=== PATIENT | female | born 1950 | race Caucasian/White ===

== ENCOUNTER 2016-10-28 12:17 | Inpatient (IN) ==
--- NOTE | 2016-10-28 12:48 | Emergency Department Note ---
Disposition Clinical Impression: Sepsis, Diverticulitis of colon Disposition: Admitted As Inpatient Condition: Good General Adult HPI - General Chief complaint: ED Abdominal Pain Stated complaint: Abdominal Pain Time Seen by Provider: 10/28/16 12:45 Source: patient Limitations: no limitations - History of Present Illness Pain Scale: 7 - Related Data Home Medications Medication Instructions Recorded Confirmed Aspirin Enteric Coated [Aspirin EC] 81 mg PO DAILY 10/28/16 10/28/16 Atorvastatin [Lipitor] 40 mg PO HS 10/28/16 10/28/16 Carvedilol 12.5 mg PO BID 10/28/16 10/28/16 Fluticasone Propionate Nasal 50 mcg NS DAILY 10/28/16 10/28/16 [Flonase] Levothyroxine [Synthroid] 88 mcg PO 30 10/28/16 10/28/16 Losartan Potassium [Cozaar] 50 mg PO DAILY 10/28/16 10/28/16 Metformin [Glucophage] 500 mg PO DAILY PRN 10/28/16 10/28/16 NIFEdipine [Nifedipine ER] 30 mg PO DAILY 10/28/16 10/28/16 Omeprazole [PriLOSEC] 20 mg PO DAILY 10/28/16 10/28/16 Allergies Allergy/AdvReac Type Severity Reaction Status Date / Time No Known Allergies Allergy Verified 10/28/16 12:18 Past Medical History - Past Medical History Medical history: Reports: cancer, diabetes, myocardial infarction, other Psychiatric history: Reports: no psych history - Social History Smoking Status: Never smoker Smokeless Tobacco Status: No Alcohol use: Reports: none Drug use: Reports: none Physical Exam - General Limitations: no limitations General appearance: alert, in no apparent distress Course Vital Signs Temperature 98.0 F 10/28/16 12:19 Pulse Rate 109 10/28/16 12:19 Respiratory Rate 18 10/28/16 12:19 Blood Pressure 138/93 10/28/16 12:19 O2 Sat by Pulse Oximetry 96 10/28/16 12:19 Temperature 98.2 F 10/29/16 07:36 Pulse Rate 84 10/29/16 07:36 Respiratory Rate 16 10/29/16 07:36 Blood Pressure 126/66 10/29/16 07:36 O2 Sat by Pulse Oximetry 92 10/29/16 07:36 Oxygen Delivery Oxygen Delivery Room Air Medical Decision Making - Lab Data Result diagrams: 10/29/16 03:34 10/29/16 03:34 Lab Results 10/28/16 10/28/16 10/28/16 Range/Units 12:54 12:54 12:55 WBC 20.7 H (4.3-11.1) K/mcL RBC 5.03 H (3.82-4.97) M/mcL Hgb 15.0 (11.5-15.4) g/dL Hct 44.7 (35.3-44.9) % MCV 88.9 (83.0-100.0) fL MCH 29.8 (28.0-33.3) pg MCHC 33.6 (31.6-35.5) g/dL RDW 13.2 (11.5-14.5) % Plt Count 261 (140-400) K/mcL MPV 10.6 (9.4-12.4) fL Immature Gran % 0.9 (0-4) % Seg Neutrophils % 77.2 % Lymphocytes % 13.1 % Monocytes % 7.6 % Eosinophils % 1.0 % Basophils % 0.2 % Neutrophils # 16.0 H (1.6-8.9) K/mcL Lymphocytes # 2.7 (0.6-4.6) K/mcL Monocytes # 1.6 H (0.0-1.3) K/mcL Eosinophils # 0.2 (0.0-0.6) K/mcL Basophils # 0.1 (0.0-0.2) K/mcL PT (9.4-12.1) Seconds INR APTT (26.0-36.0) Seconds Sodium 137 (136-145) mEq/L Potassium 4.2 (3.5-4.5) mEq/L Chloride 100 (98-109) mEq/L Carbon Dioxide 25 (19-29) mEq/L BUN 21 H (7-20) mg/dL Creatinine 0.86 (0.57-1.11) mg/dL Est GFR ( Amer) > 60 (> 60) Est GFR (Non-Af Amer) > 60 (> 60) BUN/Creatinine Ratio 24 (6-26) Glucose 145 H (70-99) mg/dL Calculated Osmolality 290 (280-300) Lactic Acid (0.5-2.2) mmol/L Calcium 9.7 (8.6-10.8) mg/dL Total Bilirubin 1.6 H (0.2-1.2) mg/dL Direct Bilirubin 0.5 (0.0-0.5) mg/dL Indirect Bilirubin 1.1 (0.0-1.2) mg/dL AST 15 (5-34) Units/L ALT 18 (0-55) Units/L Alkaline Phosphatase 139 H (38-126) Units/L Serum Total Protein 7.6 (6.0-8.3) g/dL Albumin 3.5 (3.5-5.0) g/dL Globulin 4.1 H (2.4-3.5) g/dL Albumin/Globulin Ratio 0.9 L (1.1-2.2) Amylase 43 (25-125) Units/L Lipase 16 (8-78) Units/L Urine Color Dark Yellow (Yellow) Urine Clarity Cloudy A (Clear) Urine pH 6.0 (5.0-8.0) pH Units Ur Specific [place] 1.030 H (1.010-1.025) Urine Protein 30 H (Neg-Trace) mg/dL Urine Glucose (UA) Normal (Normal) mg/dL Urine Ketones Trace H (Negative) mg/dL Urine Blood Negative (Negative) Urine Nitrite Negative (Negative) Urine Bilirubin Small H (Negative) Urine Urobilinogen Normal (Normal) mg/dL Ur Leukocyte Esterase Small H (Negative) Urine Microscopic RBC 0-3 (0-3) per hpf Urine Microscopic WBC 5-15 H (0-3) per hpf Ur Squamous Epith Cells Many H (None-Few) per lpf Urine Bacteria Many H (None-Few) per hpf Hyaline Casts Test Not Performed Ur Culture Indicated? YES A (NO) 10/28/16 10/28/16 Range/Units 15:50 15:50 WBC (4.3-11.1) K/mcL RBC (3.82-4.97) M/mcL Hgb (11.5-15.4) g/dL Hct (35.3-44.9) % MCV (83.0-100.0) fL MCH (28.0-33.3) pg MCHC (31.6-35.5) g/dL RDW (11.5-14.5) % Plt Count (140-400) K/mcL MPV (9.4-12.4) fL Immature Gran % (0-4) % Seg Neutrophils % % Lymphocytes % % Monocytes % % Eosinophils % % Basophils % % Neutrophils # (1.6-8.9) K/mcL Lymphocytes # (0.6-4.6) K/mcL Monocytes # (0.0-1.3) K/mcL Eosinophils # (0.0-0.6) K/mcL Basophils # (0.0-0.2) K/mcL PT 12.9 H (9.4-12.1) Seconds INR 1.2 APTT 28.0 (26.0-36.0) Seconds Sodium (136-145) mEq/L Potassium (3.5-4.5) mEq/L Chloride (98-109) mEq/L Carbon Dioxide (19-29) mEq/L BUN (7-20) mg/dL Creatinine (0.57-1.11) mg/dL Est GFR ( Amer) (> 60) Est GFR (Non-Af Amer) (> 60) BUN/Creatinine Ratio (6-26) Glucose (70-99) mg/dL Calculated Osmolality (280-300) Lactic Acid 1.0 (0.5-2.2) mmol/L Calcium (8.6-10.8) mg/dL Total Bilirubin (0.2-1.2) mg/dL Direct Bilirubin (0.0-0.5) mg/dL Indirect Bilirubin (0.0-1.2) mg/dL AST (5-34) Units/L ALT (0-55) Units/L Alkaline Phosphatase (38-126) Units/L Serum Total Protein (6.0-8.3) g/dL Albumin (3.5-5.0) g/dL Globulin (2.4-3.5) g/dL Albumin/Globulin Ratio (1.1-2.2) Amylase (25-125) Units/L Lipase (8-78) Units/L Urine Color (Yellow) Urine Clarity (Clear) Urine pH (5.0-8.0) pH Units Ur Specific [place] (1.010-1.025) Urine Protein (Neg-Trace) mg/dL Urine Glucose (UA) (Normal) mg/dL Urine Ketones (Negative) mg/dL Urine Blood (Negative) Urine Nitrite (Negative) Urine Bilirubin (Negative) Urine Urobilinogen (Normal) mg/dL Ur Leukocyte Esterase (Negative) Urine Microscopic RBC (0-3) per hpf Urine Microscopic WBC (0-3) per hpf Ur Squamous Epith Cells (None-Few) per lpf Urine Bacteria (None-Few) per hpf Hyaline Casts Ur Culture Indicated? (NO) Attestation Statement - Attestation Attestation: I examined this patient and my medical decision-making was reviewed with the ELEVATOR TECHNICIAN/PA/Advanced Practice Nurse/Resident Physician. I agree with the documented findings, disposition and treatment plan as described except to the extent set forth below. [id number] time provided Patient complains of a three-day history of subxiphoid discomfort. She has a remote history of cholecystectomy. Appears in no acute distress on exam. Localizes pain to her epigastric region
[2016-10-28 13:00] LABS: Basophils # 0.1 K/mcL (0.0-0.2); Basophils % 0.2 %; Eosinophils # 0.2 K/mcL (0.0-0.6); Hematocrit 44.7 % (35.3-44.9); Immature Granulocytes % 0.9 % (0-4); Lymphocytes # 2.7 K/mcL (0.6-4.6); Lymphocytes % 13.1 %; Mean Corpuscular HGB Conc 33.6 g/dL (31.6-35.5); Mean Corpuscular Hemoglobin 29.8 pg (28.0-33.3); Mean Corpuscular Volume 88.9 fL (83.0-100.0); Mean Platelet Volume 10.6 fL (9.4-12.4); Monocytes # 1.6 K/mcL (0.0-1.3); Monocytes % 7.6 %; Platelet Count 261 K/mcL (140-400); Red Blood Count 5.03 M/mcL (3.82-4.97); Red Cell Distribution Width 13.2 % (11.5-14.5); Segmented Neutrophils % 77.2 %
[2016-10-28 13:05] LABS: Bilirubin,Urine Small (Negative); Blood,Urine Negative (Negative); Clarity,Urine Cloudy (Clear); Color,Urine Dark Yellow (Yellow); Glucose,Urine (UA) Normal (Normal); Ketones,Urine Trace mg/dL (Negative); Leukocyte Esterase,Urine Small (Negative); Nitrite,Urine Negative (Negative); Protein,Urine 30 mg/dL (Neg-Trace); Urobilinogen,Urine Normal (Normal)
[2016-10-28 13:06] LABS: Bacteria,Urine Many per hpf (None-Few); RBC,Urine 0-3 per hpf (0-3); Squamous Epithelial Cell,Urine Many per lpf (None-Few)
--- NOTE | 2016-10-28 13:09 | Emergency Department Note ---
Disposition Clinical Impression: Diverticulitis of colon Sepsis Qualifiers: Sepsis type: sepsis due to unspecified organism Qualified Code(s): A41.9 - Sepsis, unspecified organism Disposition: Admitted As Inpatient Condition: Good Referrals: NO,PCP [Non-Partnered Physician] - Forms: Work/School Release, ED Satisfaction Letter Time of Disposition: 15:11 Abdominal Pain HPI - General Chief Complaint: ED Abdominal Pain Stated Complaint: Abdominal Pain Time Seen by Provider: 10/28/16 12:45 Source: patient Mode of arrival: ambulatory Limitations: no limitations Nursing Notes Reviewed: Yes Vital Signs Reviewed: Yes - History of Present Illness HPI Narrative: 66-year-old female history of GERD presents to the ED with epigastric pain. Intermittently over the past 2 nights. Described as a sharp pain with some radiation to the right upper quadrant. Denies any association with foods. Denies any nausea. Does report 2 episodes of emesis yesterday one while sitting on the couch and the other laying supine in the bed before sleeping. Denies any recent illness, fever, cough, chest pain, shortness of breath, diarrhea, recent travel. Denies any bloody stool or black tarry stools. Denies any urinary symptoms. History of a hysterectomy and cholecystectomy. Has been eating a normal diet without any difficulty. She has not taken anything for pain. Pain Scale: 7 - Related Data Allergies Allergy/AdvReac Type Severity Reaction Status Date / Time No Known Allergies Allergy Verified 10/28/16 12:18 All systems ED: reviewed and negative except as stated. Constitutional: Denies: fever, chills ENT ED: Denies: congestion Cardiovascular: Denies: chest pain Respiratory: Denies: cough, dyspnea Gastrointestinal: Reports: abdominal pain, vomiting. Denies: nausea, diarrhea, melena, hematochezia Genitourinary: Denies: urgency, dysuria Musculoskeletal: Denies: back pain, neck pain Neurological: Denies: headache Abdominal Pain PMH - Past Medical History Medical history: Reports: cancer, diabetes, myocardial infarction, other Female Surgical History: Reports: cholecystectomy, hysterectomy, thyroidectomy Psychiatric history: Reports: no psych history - Social History Smoking status: Never smoker Alcohol use: Reports: none Drug use: Reports: none Physical Exam - General Limitations: no limitations General appearance: alert, in no apparent distress - Head Head exam: atraumatic, normocephalic, normal inspection - Eye Eye exam: Present: normal appearance, PERRL, EOMI - ENT ENT exam: normal exam, normal oropharynx, mucous membranes moist - Neck Neck exam: Present: normal inspection, full ROM, trachea midline - Chest Chest inspection: Present: normal inspection, symmetric chest wall rise. Absent : tenderness - Respiratory Respiratory exam: Present: normal lung sounds bilaterally. Absent: respiratory distress, wheezes - Cardiovascular Cardiovascular exam: Present: regular rate, normal rhythm, normal heart sounds. Absent: systolic murmur, diastolic murmur - Abdominal Exam Abdominal exam: Present: soft (Obese), tenderness, normal bowel sounds. Absent : Non-Tender, distention, guarding, rebound, rigidity, Ventura's sign, Rovsing's sign, tenderness at McBurney's Point Abdominal tenderness: Present: RUQ, suprapubic - Extremities Exam Extremities exam: Present: normal inspection, full ROM, normal capillary refill. Absent: tenderness, pedal edema, calf tenderness - Back Exam Back exam: Present: normal inspection, full ROM. Absent: tenderness, CVA tenderness (R), CVA tenderness (L) - Neurological Exam Neurological exam: Present: alert, oriented X3 - Psychiatric Psychiatric exam: Present: normal affect, normal mood - Skin Skin exam: Present: warm, dry, intact, normal color. Absent: rash Course Course Narrative: 66-year-old female presents with abdominal pain was sleeping in the epigastric and right upper quadrant. History of cholecystectomy and hysterectomy. Ongoing for the past few days with 2 episodes of vomiting. Denies any chest pain or radiation of the pain into the shoulders or draw. Denies any diaphoresis shortness of breath nausea or vomiting with the pain occurs. She appears in no acute distress. She is afebrile. Initial HR was 102 now 89. She is not septic appearing. Lungs are clear auscultation bilaterally. Heart's regular rate and rhythm. Abdomen is soft nondistended nonrigid. Tenderness along the epigastric and right upper quadrant. Bowel sounds are normal. No evidence of rash. The CVA tenderness. Will check basic labs and urine. EKG is normal sinus rhythm without signs of acute ischemic changes to suggest a cardiac etiology. Toradol and Zofran for symptoms. Patient is in agreement with this plan. - Reevaluation(s) Reevaluation #1: She has a leukocytosis of 20. Alk phosphatase is a little elevated. Amylase and lipase is normal. Labs are otherwise unremarkable. We will get a CT of her abdomen and pelvis without contrast. Time: 13:24 Reevaluation #2: Pain is better controlled with toradol. CT of the abdomen and pelvis reveals acute moderate wall thickening of the transverse colon with adjacent fat stranding to suggest transverse colonic diverticulitis. No evidence of perforation, free air or abscess. Malignancy cannot be excluded. Sepsis identified, will ordered lactate, coags, and blood cultures. Will start her on Cipro and Flagyl for antibiotics. She has not been hypotensive during stay and does not require a 30 mL/kg fluid resuscitation at this time. There is also bilateral renal cysts and spleen lesion consistent with cyst or hemangioma. Will admit patient for pain control and bowel rest. Patient is in agreement with plan. Time: 15:09 - Consultations Consultation #1: Spoke with on-call hospitalist falguni Silva to admit for transverse colonic diverticulitis. No further orders at this time Time: 15:11 Vital Signs Temperature 98.0 F 10/28/16 12:19 Pulse Rate 109 10/28/16 12:19 Respiratory Rate 18 10/28/16 12:19 Blood Pressure 138/93 10/28/16 12:19 O2 Sat by Pulse Oximetry 96 10/28/16 12:19 Temperature 98.0 F 10/28/16 12:19 Pulse Rate 89 10/28/16 13:47 Respiratory Rate 16 10/28/16 13:47 Blood Pressure 107/79 10/28/16 13:47 O2 Sat by Pulse Oximetry 94 10/28/16 13:47 Oxygen Delivery Oxygen Delivery Room Air Abdominal Pain - Medical Records Medical records reviewed: Yes I reviewed the patient's medical records. - Lab Data Lab results reviewed: Yes I reviewed the patient's lab results. Result diagrams: 10/28/16 12:54 10/28/16 12:54 Lab Results 10/28/16 10/28/16 10/28/16 Range/Units 12:54 12:54 12:55 WBC 20.7 H (4.3-11.1) K/mcL RBC 5.03 H (3.82-4.97) M/mcL Hgb 15.0 (11.5-15.4) g/dL Hct 44.7 (35.3-44.9) % MCV 88.9 (83.0-100.0) fL MCH 29.8 (28.0-33.3) pg MCHC 33.6 (31.6-35.5) g/dL RDW 13.2 (11.5-14.5) % Plt Count 261 (140-400) K/mcL MPV 10.6 (9.4-12.4) fL Immature Gran % 0.9 (0-4) % Seg Neutrophils % 77.2 % Lymphocytes % 13.1 % Monocytes % 7.6 % Eosinophils % 1.0 % Basophils % 0.2 % Neutrophils # 16.0 H (1.6-8.9) K/mcL Lymphocytes # 2.7 (0.6-4.6) K/mcL Monocytes # 1.6 H (0.0-1.3) K/mcL Eosinophils # 0.2 (0.0-0.6) K/mcL Basophils # 0.1 (0.0-0.2) K/mcL Sodium 137 (136-145) mEq/L Potassium 4.2 (3.5-4.5) mEq/L Chloride 100 (98-109) mEq/L Carbon Dioxide 25 (19-29) mEq/L BUN 21 H (7-20) mg/dL Creatinine 0.86 (0.57-1.11) mg/dL Est GFR ( Amer) > 60 (> 60) Est GFR (Non-Af Amer) > 60 (> 60) BUN/Creatinine Ratio 24 (6-26) Glucose 145 H (70-99) mg/dL Calculated Osmolality 290 (280-300) Calcium 9.7 (8.6-10.8) mg/dL Total Bilirubin 1.6 H (0.2-1.2) mg/dL Direct Bilirubin 0.5 (0.0-0.5) mg/dL Indirect Bilirubin 1.1 (0.0-1.2) mg/dL AST 15 (5-34) Units/L ALT 18 (0-55) Units/L Alkaline Phosphatase 139 H (38-126) Units/L Serum Total Protein 7.6 (6.0-8.3) g/dL Albumin 3.5 (3.5-5.0) g/dL Globulin 4.1 H (2.4-3.5) g/dL Albumin/Globulin Ratio 0.9 L (1.1-2.2) Amylase 43 (25-125) Units/L Lipase 16 (8-78) Units/L Urine Color Dark Yellow (Yellow) Urine Clarity Cloudy A (Clear) Urine pH 6.0 (5.0-8.0) pH Units Ur Specific [place] 1.030 H (1.010-1.025) Urine Protein 30 H (Neg-Trace) mg/dL Urine Glucose (UA) Normal (Normal) mg/dL Urine Ketones Trace H (Negative) mg/dL Urine Blood Negative (Negative) Urine Nitrite Negative (Negative) Urine Bilirubin Small H (Negative) Urine Urobilinogen Normal (Normal) mg/dL Ur Leukocyte Esterase Small H (Negative) Urine Microscopic RBC 0-3 (0-3) per hpf Urine Microscopic WBC 5-15 H (0-3) per hpf Ur Squamous Epith Cells Many H (None-Few) per lpf Urine Bacteria Many H (None-Few) per hpf Hyaline Casts Test Not Performed Ur Culture Indicated? YES A (NO) - Radiology Data Radiology results reviewed: Yes I reviewed the patient's radiology results. Abdomen/Pelvis CT 10/28/16 13:18 IMPRESSION: 1. Acute moderate wall thickening of the transverse colon with adjacent inflammatory fat stranding and a small anterior transverse colonic diverticulum noted. These findings are most consistent with acute transverse colonic diverticulitis, without evidence of perforation, free air, or abscess. However, a transverse colonic malignancy is also a diagnostic consideration. Suggest appropriate clinical treatment, and imaging follow-up, to include either repeat CT abdomen/pelvis, barium enema, or colonoscopy, to ensure resolution of the transverse colonic findings, and to exclude underlying transverse colonic mass lesion. 2. Bilateral renal cortical and peripelvic cysts. There is a 6 mm high attenuation nodular lesion off the lateral aspect of the mid right kidney, most likely a hyperdense cyst. However, consider a follow-up pre and postcontrast renal mass protocol CT study to more completely characterize this abnormality. 3. 9 mm low-attenuation lesion within the spleen, most likely either a cyst or hemangioma. 4. Patient is status post cholecystectomy and hysterectomy. D/ / 10/28/2016 14:52:21 Arnoldo Baldwin MD / eberry Interpreting Provider: Arnoldo Baldwin MD - EKG Data EKG attestation: Yes I reviewed and interpreted this EKG. EKG results narrative: EKG performed 1300 sinus tachycardia 102 bpm, good R-R wave progression, normal axis, there are no ST elevations or depressions, no T-wave inversions. Intervals are within normal limits OK interval 182 QRS 81 QT QTC 311 369. Compared to old EKG performed 03/29/2011 shows consistent findings with poor R wave progression. No acute ischemic changes.
[2016-10-28 13:15] LABS: Alanine Aminotransferase 18 Units/L (0-55); Albumin 3.5 g/dL (3.5-5.0); Albumin/Globulin Ratio 0.9 (1.1-2.2); Alkaline Phosphatase 139 Units/L (38-126); Amylase 43 Units/L (25-125); Aspartate Amino Transferase 15 Units/L (5-34); BUN/Creatinine Ratio 24 (6-26); Bilirubin,Direct 0.5 mg/dL (0.0-0.5); Bilirubin,Indirect 1.1 mg/dL (0.0-1.2); Bilirubin,Total 1.6 mg/dL (0.2-1.2); Blood Urea Nitrogen 21 mg/dL (7-20); Calcium 9.7 mg/dL (8.6-10.8); Carbon Dioxide 25 mEq/L (19-29); Chloride 100 mEq/L (98-109); Globulin 4.1 g/dL (2.4-3.5); Glucose 145 mg/dL (70-99); Lipase 16 Units/L (8-78); Osmolality,Calculated 290 (280-300); Potassium 4.2 mEq/L (3.5-4.5); Sodium 137 mEq/L (136-145); Total Protein 7.6 g/dL (6.0-8.3); eGFR For African Americans > 60 (> 60); eGFR For Non-African Americans > 60 (> 60)
[2016-10-28] MEDS ORDERED: Ketorolac 30 MG/ML VIAL IM ONE (13:27)
[2016-10-28] MEDS ORDERED: Ondansetron ODT 4 MG TAB.RAPDIS SL ONE (13:27)
[2016-10-28] MEDS ORDERED: MetroNIDAZOLE 500 MG/100 ML 500 MG/100 ML BAG IVPB ONE (15:02)
[2016-10-28] MEDS ORDERED: 0.9 % Sodium Chloride 1,000 ML IVC STA (15:15)
[2016-10-28 16:05] LABS: INR 1.2; Prothrombin Time 12.9 Seconds (9.4-12.1)
[2016-10-28] MEDS ORDERED: Ondansetron ODT 4 MG TAB.RAPDIS SL PRN (18:13)
[2016-10-28] MEDS ORDERED: *HR* HYDROcodone/Acet 5/325 mg TABLET PO PRN (18:13)
[2016-10-28] MEDS ORDERED: *HR* Morphine 2 MG/ML SYRINGE IVP PRN (18:13)
[2016-10-28] MEDS ORDERED: Acetaminophen 325 MG TABLET PO PRN (18:13)
[2016-10-28] MEDS ORDERED: Naloxone 0.4 MG/ML INJ IVP PRN (18:13)
[2016-10-28] MEDS ORDERED: D5% in Water 1,000 ML IVC PRN (18:46)
[2016-10-28] MEDS ORDERED: Dextrose Gel 15 GM PO PRN ×2 (18:46)
[2016-10-28] MEDS ORDERED: *HR* Dextrose 50 % in Water (Syg) 50 ML SYRINGE IVP PRN (18:46)
--- NOTE | 2016-10-28 18:55 | Event Note ---
Date of Encounter: 10/28/16 Time of Encounter: 18:54 I examined this patient and my medical decision-making was reviewed with the DYE TUB OPERATOR/PA/Advanced Practice Nurse/Resident Physician. I agree with the documented findings, disposition and treatment plan as described except to the extent set forth below. She has a PMH of HTN, Hypothyroidism and DM, Medullary thyroid CA. She presented with epigastric discomfort which has been intermittent for the past 2 days associated with 2 episodes of vomiting, she denies hematemesis, change in bowel habits, hematochezia, she denies fever or chills. ROS is otherwise unremarkable. Physical exam: VSS, she was tachycardic on admission but has HR now normal after IVF, she is comfortable sitting up in bed. Abdomen exam is significant for epigastric tenderness, no rebound, no guarding, no palpable masses, bowel sounds are present in all quadrants. Labs and Imaging reviewed: Abd CT with acute transverse diverticulitis, uncomplicated without perforation or abscess, suspicious malignancy in transverse colon, bilateral renal cysts and spleen lesion consistent with cyst or hemangioma. She has leukocytosis with left shift, chem is unremarkable, coagulation panel is normal, and LFT unremarkable, and UA is contaminated Assessment/Plan: Sepsis secondary to Acute Uncomplicated diverticulitis, agree with blood cultures, urine culture, IVF, clear liquid diet, Cipro and flagyl, patient will need Colonoscopy as outpatient for follow up. She also has multiple abnormal CT findings which are not acute for now. Resume home meds. Rest of details as in NIL[facility]a documentation
--- NOTE | 2016-10-28 19:19 | Internal Med History&Physical ---
<PurnimaBrannon Puri - Last Filed: 10/29/16 07:32> Date of Encounter: 10/29/16 Time of Encounter: 18:00 Assessment and Plan (1) Sepsis Current visit: Yes Status: Acute Assess: Patient admitted with chief complain of epigastric pain and confirmed diverticulitis via CT of abdomen and pelvis. Sepsis protocol to be followed due to HR = 109, WBCs or 20.7, and unspecified organism. Plan: Lactate level being monitored Blood cultures ordered IV Cipro ordered IV Flagyl ordered Crystalloid fluids ordered Qualifiers: Sepsis type: sepsis due to unspecified organism Qualified Code(s): A41.9 - Sepsis, unspecified organism (2) Diverticulitis of colon Current visit: Yes Status: Acute Assess: Patient presents with acute diverticulitis which was confirmed by CT of abdomen and pelvis on 10/28/16. Sepsis protocol ordered due to patients HR of 109, WBCs of 20.7, and unspecified organism. Patient also presents with epigastric pain that is centralized and causes guarding due to tenderness when palpated. Plan: Liquid diet ordered Progress to solid diet tomorrow 10/29/16 as tolerated Acetaminophen ordered PRN for pain 1-3 Hydrocodone ordered PRN for pain 4-6 Morphine ordered PRN for pain 7-10 Monitor for pain Up with assist due to pain (3) Epigastric abdominal pain Current visit: Yes Status: Acute Assess: Patient also presents with epigastric pain that is centralized and causes guarding due to tenderness when palpated. Patient presents with acute diverticulitis which was confirmed by CT of abdomen and pelvis on 10/28/16. Sepsis protocol ordered due to patients HR of 109, WBCs of 20.7, and unspecified organism. Plan: Liquid diet ordered Progress to solid diet tomorrow 10/29/16 as tolerated Acetaminophen ordered PRN for pain 1-3 Hydrocodone ordered PRN for pain 4-6 Morphine ordered PRN for pain 7-10 Monitor for pain Up with assist due to pain (4) DVT prophylaxis Current visit: Yes Status: Acute DVT prophylaxis ordered due to patient being inpatient status, inactivity due to pain, and history of [place]. Internal Medicine - H&P: HPI Chief complaint: Epigastric pain Admitted From: Emergency Dept Plans for Post Hospital Care: Home History of present illness: Ms. Pan is a 66 year old female presents from the ED with a history of GERD and a chief complaint of centralized epigastric pain. Patient reports nausea and vomiting began last night, 10/27/16, with no relief from epigastric pain. Recent states pain has some radiation qualities to the upper right quadrant. Denies any association with foods. Mrs. Pan reports 2 episodes of emesis but denies presence of hematemesis. Patient denies any recent illness, fever, cough, chest pain, SOB, diarrhea, or recent travel out of country. Patient denies hematochezia or tarry stools. Patient denies any urinary symptoms and reports only occasional urinary incontinence. Patient states she takes omeprazole daily for GERD. Patient also reports her bowels move every day, and BMs are brown and formed. Denies diarrhea. Upon examination patient exhibits tenderness and guarding in epigastric area when palpated. CT of abdomen and pelvis dated 10/28/16 reveals acute motor or wall thickening of the transverse colon with adjacent fat stranding to suggest transverse colonic diverticulitis. No evidence of perforation, free air, or abscess. Sepsis protocol to be followed due to unspecified organism and identified diverticulitis with qualifying SIRS criteria: HR = 109, WBCs of 20.7. Patient admitted as inpatient status. Past Med Surg Social Fam HX - Past Medical History Medical history: cancer, diabetes, GERD, hypertension, myocardial infarction, other Psychiatric history: no psych history - Past Surgical History Surgical History: cholecystectomy, hysterectomy, thyroidectomy - Social History Smoking Status: Never smoker Smokeless Tobacco Status: No Alcohol use: none Drug use: none Occupational status: retired Current living situation: Home Activity Level: Independent ambulation Recent Out of Country Travel Within the Last 8 Weeks: No Exposure or Possible Exposure to Illness During Travel: No - Family History Father Living Status: Cause of : heart attack Hx Family Cardiac Disorders: Yes Internal Medicine - H&P: Meds Aspirin Enteric Coated [Aspirin EC] 81 mg PO DAILY 10/28/16 [History] Atorvastatin [Lipitor] 40 mg PO HS 10/28/16 [History] Carvedilol 12.5 mg PO BID 10/28/16 [History] Fluticasone Propionate Nasal [Flonase] 50 mcg NS DAILY 10/28/16 [History] Levothyroxine [Synthroid] 88 mcg PO 0630 10/28/16 [History] Losartan Potassium [Cozaar] 50 mg PO DAILY 10/28/16 [History] Metformin [Glucophage] 500 mg PO DAILY PRN 10/28/16 [History] NIFEdipine [Nifedipine ER] 30 mg PO DAILY 10/28/16 [History] Omeprazole [PriLOSEC] 20 mg PO DAILY 10/28/16 [History] Allergies No Known Allergies Allergy (Verified 10/28/16 12:18) All Systems PM: A 10-system review of systems was performed and is negative for pertinent findings except as documented above in the HPI. - Constitutional Constitutional: no chills, no fever(s), no night sweats - EENT Eyes: no change in vision, no discharge, no pain, no photophobia Ears: no ear discharge, no ear pain, no tinnitus Nose, mouth and throat: no dysphagia, no nasal discharge, no neck pain, no sore throat - Breasts Breasts: as per HPI Additional comments: Patient reports no changes in her breasts or tissues bilaterally. - Cardiovascular Cardiovascular ROS IM: no chest pain, no diaphoresis, no dyspnea, no lightheadedness, no palpitations, no syncope - Respiratory Respiratory: no cough, no dyspnea, no wheezing, no excessive phlegm production - Gastrointestinal Gastrointestinal: abdominal pain, nausea, vomiting Additional comments: Patient reports episodes of nausea and vomiting beginning in the evening of 03/07. Patient also reports pain in the central epigastric area of her abdomen. States this is not chronic. - Genitourinary Genitourinary: urinary incontinence, no change in urinary stream, no dysuria, no flank pain, no hematuria Additional comments: Patient reports occasional urinary incontinence. Patient denies any burning or urgency with urination. Patient denies history of UTIs. Menstruation: as per HPI, post hysterectomy Additional comments: Patient reports she is status post hysterectomy and does not take HRT. - Musculoskeletal Musculoskeletal ROS IM: no numbness, no tingling - Integumentary Integumentary IM: no rash, no unusual bruising - Neurological Neurological ROS: no confusion, no convulsions, no focal weakness, no numbness, no tingling, no tremor(s) - Psychiatric Psychiatric: as per HPI Additional comments: Patient denies any history of psychiatric illness, anxiety, or depression. - Endocrine Endocrine IM: as per HPI Additional comments: Patient denies any history of cold and heat intolerance, chronic fatigue, or chronic weakness. - Hematologic/Lymphatic Hematologic/Lymphatic: no easy bruising - Allergic/Immunologic Allergic/Immunologic: as per HPI, seasonal rhinorrhea Additional comments: Patient reports she is symptomatic for seasonal allergies but has not been diagnosed. - Constitutional Vitals: Temp Pulse Resp BP Pulse Ox 97.9 F 75 18 99/65 94 10/28/16 18:38 10/28/16 18:38 10/28/16 18:38 10/28/16 18:38 10/28/16 18:38 General appearance: Present: cooperative, A&O X 3, pleasant, obese, answers questions appropriately - Head Head exam: Present: atraumatic, normocephalic - Eye Eye exam: Present: normal appearance, PERRL, conjuntiva pink, sclera anicteric Pupils: Present: PERRL - ENT ENT exam: Present: normal exam Additional comments: Patient reports reduced hearing in left ear. Upon testing however, patient was able to identify words spoken with right ear occluded. - Neck Neck exam general surgery: Present: normal inspection, supple, trachea midline - Respiratory Respiratory exam: Present: CTAB. Absent: accessory muscle use, rales, rhonchi, wheezes Additional comments: Patient's lungs clear bilaterally upon auscultation in all lobes. - Cardiovascular Additional comments: Slight murmur noted on heart exam. Patient confirms this. - GI/Abdominal GI/Abdominal exam: Present: guarding, normal bowel sounds, soft, no peritoneal signs. Absent: distended, tenderness Additional comments: Patient presents with centralized upper epigastric pain. Abdomen is tender, and patient exhibits guarding upon palpation. - Rectal Rectal exam: Present: deferred - Additional comments: Exam deferred. - Extremities Exam Extremities exam: Present: normal capillary refill, normal inspection, warm, radial pulses palpable and symetrical. Absent: calf tenderness, cyanotic, pedal edema - Back Exam Back exam: Present: normal inspection - Neurological Exam Neurological exam: Present: alert, CN II-XII intact, oriented X3, reflexes normal, no focal deficits, strengths equal and symetr throughout. Absent: pronater drift, facial droop, speech deficit - Psychiatric Psychiatric exam: Present: normal affect, normal mood - Skin Skin exam: Present: dry, intact, normal color, warm Internal Med - H&P Results - Labs CBC & Chem 7: 10/29/16 03:34 10/29/16 03:34 - EKG Data Prior EKG available for review: yes When compared to previous EKG: there is no significant change Interpretation IM: other (Poor R wave progression) EKG comments: 10/28/16 19:39 EKG performed on 10/28/16 shows sinus tachycardia at 102 bpm, good R-R wave progression, normal axis, there are no ST elevations or depressions, no T-wave inversions. Intervals are within normal limits. [place] interval 182, QRS 81, QT QTC 311 369. Compared to old EKG performed on 03/29/11 shows consistent findings with poor R wave progression. No acute ischemic changes. - Diagnostic Studies CT scan - pelvis Additional comments: 10/28/16: Acute moderate wall thickening of the transverse colon with adjacent inflammatory fat stranding and a small anterior transverse colonic diverticulum noted. These finding are most consistent with acute transverse colonic diverticulitis, without evidence of perforation, free air, or abscess. Transverse colonic malignancy is also a diagnostic consideration. Suggest appropriate clinical treatment and imaging follow-up to include either repeat CT abdomen/pelvis, barium enema, or colonoscopy, to ensure resolution of the transverse colonic findings and to exclude underlying transverse colonic mass lesion. Bilateral renal cortical and peripelvic cysts. There is a 6 mm high attenuation nodular lesion off the lateral aspect of the mid right kidney, most likely a hyperdense cyst. However, consider a follow-up pre and post-contrast renal mass protocol CT study to more completely characterize this study. 9 mm low-attenuation lesion within the spleen, most likely either a cyst or hemangioma. Patient is status post cholecystectomy and hysterectomy. <Ja Nunes - Last Filed: 10/29/16 08:04> Date of Encounter: 10/29/16 Internal Medicine - H&P: HPI History of present illness: Ms. Pan is a 66 year old female All Systems PM: A 10-system review of systems was performed and is negative for pertinent findings except as documented above in the HPI. - Constitutional Vitals: Temp Pulse Resp BP Pulse Ox 98.2 F 84 16 126/66 92 10/29/16 07:36 10/29/16 07:36 10/29/16 07:36 10/29/16 07:36 10/29/16 07:36 Internal Med - H&P Results - Labs CBC & Chem 7: 10/29/16 03:34 10/29/16 03:34 Labs: Short CBC 10/29/16 Range/Units 03:34 WBC 11.9 H (4.3-11.1) K/mcL Hgb 11.8 D (11.5-15.4) g/dL Hct 36.0 (35.3-44.9) % Plt Count 194 (140-400) K/mcL Neutrophils # 7.9 (1.6-8.9) K/mcL BMP 10/29/16 03:34 Sodium 142 Potassium 4.2 Chloride 111 H Carbon Dioxide 23 BUN 19 Creatinine 0.78 Glucose 101 H Calcium 8.3 L - Attending Attestation 66 Y/O F seen independently and examined by me, chart review, diagnoses and plan of care discussed with the patient and SIDE SPLITTER Sepsis secondary to Diverticulitis Plan of care as in SIDE SPLITTER's notes...
[2016-10-28] MEDS ORDERED: 0.9 % Sodium Chloride 1,000 ML IVC ONE (20:13)
[2016-10-28] MEDS: Insulin LISPRO 300 UNITS/3 ML VIAL SQ SCH (21:17)
[2016-10-29] MEDS: MetroNIDAZOLE 500 MG/100 ML 500 MG/100 ML BAG IVPB SCH ×3 (00:30→15:06)
[2016-10-29 04:04] LABS: Basophils % 0.3 %; Eosinophils # 0.4 K/mcL (0.0-0.6); Eosinophils % 3.3 %; Immature Granulocytes % 0.5 % (0-4); Lymphocytes # 2.4 K/mcL (0.6-4.6); Mean Corpuscular HGB Conc 32.8 g/dL (31.6-35.5); Mean Corpuscular Hemoglobin 29.9 pg (28.0-33.3); Mean Corpuscular Volume 91.4 fL (83.0-100.0); Mean Platelet Volume 10.9 fL (9.4-12.4); Monocytes # 1.2 K/mcL (0.0-1.3); Monocytes % 9.6 %; Neutrophils # 7.9 K/mcL (1.6-8.9); Platelet Count 194 K/mcL (140-400); Red Blood Count 3.94 M/mcL (3.82-4.97); Red Cell Distribution Width 13.4 % (11.5-14.5); Segmented Neutrophils % 66.3 %
[2016-10-29 04:05] LABS: Hemoglobin 11.8 g/dL (11.5-15.4)
[2016-10-29 04:19] LABS: BUN/Creatinine Ratio 24 (6-26); Blood Urea Nitrogen 19 mg/dL (7-20); Calcium 8.3 mg/dL (8.6-10.8); Carbon Dioxide 23 mEq/L (19-29); Chloride 111 mEq/L (98-109); Chol/HDL Ratio 3.2 (0-4.9); Cholesterol 129 mg/dL (< 200); Glucose 101 mg/dL (70-99); HDL Cholesterol 40 mg/dL (40-59); LDL Cholesterol,Calculated 71 mg/dL (0-99); Osmolality,Calculated 296 (280-300); Potassium 4.2 mEq/L (3.5-4.5); Sodium 142 mEq/L (136-145); Triglycerides 91 mg/dL (< 150); eGFR For African Americans > 60 (> 60); eGFR For Non-African Americans > 60 (> 60)
[2016-10-29] MEDS: *HR* Enoxaparin 40 MG/0.4 ML SYRINGE SQ SCH (07:36)
[2016-10-29] MEDS: Insulin LISPRO 300 UNITS/3 ML VIAL SQ SCH ×4 (07:42→21:43)
[2016-10-29] MEDS: Aspirin Enteric Coated 81 MG Tablet PO SCH (08:38)
[2016-10-29] MEDS: Fluticasone Propionate Nasal 50 MCG/SPRAY BOTTLE NS SCH (08:43)
[2016-10-29] MEDS ORDERED: NIFEdipine XL (24 HR) 30 MG TAB.ER.24 PO SCH (09:00)
--- NOTE | 2016-10-29 10:00 | Internal Med Progress Note ---
Date of Encounter: 10/29/16 Time of Encounter: 10:00 - Assessment and plan (1) Sepsis Current Visit: Yes Status: Acute Assessment and plan: Improved WBC improved from 25,000 to 74005 Continue Cipro and Flgyl IV Qualifiers: Sepsis type: sepsis due to unspecified organism Qualified Code(s): A41.9 - Sepsis, unspecified organism (2) Splenic cyst Current Visit: Yes Status: Acute Assessment and plan: Per CT Follow up with PCP for monitoring after d/c (3) Diverticulitis of colon Current Visit: Yes Status: Acute Assessment and plan: Uncomplicated, without rupture or abscess transverse colitis and suspected malignancy patient reports prior normal colonoscopy less than 5 years ago Advance diet to full liquid and regular diet for lunch and dinner respectively Continue Cipro and Flagyl (4) DVT prophylaxis Current Visit: Yes Status: Acute Assessment and plan: Lovenox SQ (5) HTN (hypertension) Current Visit: Yes Status: Chronic Assessment and plan: Continue meds, controlled Qualifiers: Hypertension type: essential hypertension Qualified Code(s): I10 - Essential (primary) hypertension (6) Hypothyroidism Current Visit: Yes Status: Chronic Assessment and plan: Continue synthroid Qualifiers: Hypothyroidism type: unspecified Qualified Code(s): E03.9 - Hypothyroidism , unspecified - Subjective Interval history: Seen at bedside Reports abdominal pain is subsiding She has no fever, but still feels sore on the epigastric region Her white count is improving Her HR has remained normal Will advance diet - Constitutional Vitals: Temp Pulse Resp BP Pulse Ox 98.2 F 84 16 126/66 92 10/29/16 07:36 10/29/16 07:36 10/29/16 07:36 10/29/16 07:36 10/29/16 07:36 General appearance: Present: cooperative, A&O X 3, pleasant, obese, answers questions appropriately - Head Head exam: Present: atraumatic, normocephalic - Eye Eye exam: Present: PERRL, conjuntiva pink, sclera anicteric Pupils: Present: PERRL - Neck Neck exam general surgery: Present: supple, trachea midline. Absent: lymphadenopathy - Respiratory Respiratory exam: Present: CTAB. Absent: accessory muscle use, rales, rhonchi, wheezes - Cardiovascular Cardiovascular exam: Present: RRR, +S1, +S2. Absent: diastolic murmur, gallop, rubs, systolic murmur - GI/Abdominal GI/Abdominal exam: Present: normal bowel sounds, soft, no peritoneal signs. Absent: distended, tenderness - Extremities Exam Extremities exam: Present: warm, radial pulses palpable and symetrical. Absent : calf tenderness, cyanotic, pedal edema - Neurological Exam Neurological exam: Present: alert, CN II-XII intact, oriented X3, no focal deficits. Absent: pronater drift, facial droop, speech deficit - Skin Skin exam: Present: dry, intact Internal Medicine: Result - Labs CBC & Chem 7: 10/29/16 03:34 10/29/16 03:34 Labs: Short CBC 10/29/16 Range/Units 03:34 WBC 11.9 H (4.3-11.1) K/mcL Hgb 11.8 D (11.5-15.4) g/dL Hct 36.0 (35.3-44.9) % Plt Count 194 (140-400) K/mcL Neutrophils # 7.9 (1.6-8.9) K/mcL BMP 10/29/16 03:34 Sodium 142 Potassium 4.2 Chloride 111 H Carbon Dioxide 23 BUN 19 Creatinine 0.78 Glucose 101 H Calcium 8.3 L - ABG Interpretation ABG results: PT/INR, D-dimer PT 12.9 Seconds (9.4-12.1) H 10/28/16 15:50 Consult Discharge Plan - Plan Referrals: Atul Ritchie Jr, MD [Primary Care Provider] -
[2016-10-29 16:35] LABS: Acinetobacter baumannii by PCR Not Detected (Not Detect); Candida albicans by PCR Not Detected (Not Detect); Candida glabrata by PCR Not Detected (Not Detect); Candida krusei by PCR Not Detected (Not Detect); Candida parapsilosis by PCR Not Detected (Not Detect); Candida tropicalis by PCR Not Detected (Not Detect); Enterococcus by PCR Not Detected (Not Detect); Escherichia coli by PCR Not Detected (Not Detect); Klebsiella oxytoca by PCR Not Detected (Not Detect); Klebsiella pneumoniae by PCR Not Detected (Not Detect); Pseudomonas aeruginosa by PCR Not Detected (Not Detect); Serratia marcescens by PCR Not Detected (Not Detect); Staphylococcus aureus by PCR Not Detected (Not Detect); Streptococcus agalactiae(B)PCR Not Detected (Not Detect); Streptococcus by PCR Not Detected (Not Detect); Streptococcus pneumoniae PCR Not Detected (Not Detect); Streptococcus pyogenes (A) PCR Not Detected (Not Detect); blaKPC Carbapenem-Resist Gene Not Detected (Not Detect); mecA Methicillin-Resist Gene Not Detected (Not Detect); vanA/B Vancomycin-Resist Genes Not Detected (Not Detect)
--- NOTE | 2016-10-29 17:50 | Electrocardiograph Report ---
[place] [address] Test Date: 2016-10-28 Pat Name: Nita Pan Department: 103 Room: 3A36 Gender: F Fire Truck Driver: MSC : [id number] Requested By: Jose Ramon Mortensen Order Number: [id number] Reading MD: Adarsh Manriquez Measurements Intervals [place] Rate: 102 P: 41 NH: 182 QRS: -1 QRSD: 81 T: 9 QT: 311 QTc: 369 Interpretive Statements SINUS TACHYCARDIA ABNORMAL RHYTHM ECG Electronically Signed On 10-29-2016 17:49:03 EDT by Adarsh Manriquez
[2016-10-30] MEDS: MetroNIDAZOLE 500 MG/100 ML 500 MG/100 ML BAG IVPB SCH ×3 (00:37→21:41)
[2016-10-30] MEDS: *HR* Enoxaparin 40 MG/0.4 ML SYRINGE SQ SCH (06:02)
[2016-10-30] MEDS: Insulin LISPRO 300 UNITS/3 ML VIAL SQ SCH ×4 (08:25→21:37)
[2016-10-30] MEDS: Fluticasone Propionate Nasal 50 MCG/SPRAY BOTTLE NS SCH (08:27)
[2016-10-30] MEDS: Aspirin Enteric Coated 81 MG Tablet PO SCH (08:27)
--- NOTE | 2016-10-30 11:45 | Internal Med Progress Note ---
Date of Encounter: 10/30/16 Time of Encounter: 11:42 - Assessment and plan (1) Sepsis Current Visit: Yes Status: Acute Assessment and plan: Resolved. Secondary to acute diverticulitis. Continue empiric antibiotics with IV ceftriaxone and metronidazole. Qualifiers: Sepsis type: sepsis due to unspecified organism Qualified Code(s): A41.9 - Sepsis, unspecified organism (2) Diverticulitis of colon Current Visit: Yes Status: Acute Assessment and plan: Uncomplicated, without rupture or abscess CT of the abdomen and pelvis revealed acute moderate wall thickening of the transverse colon with Aygestin inflammatory fat stranding and a small anterior transverse colonic diverticulum. Suspected acute transverse colonic diverticulitis vs colonic malignancy. 10/28/16: 1/2 bottles blood culture positive for GPC. 10/28/16: Urine culture grew Proteus m, pansusceptible. patient reports prior normal colonoscopy less than 5 years ago Advance diet to soft. Continue ceftriaxone and and Flagyl. (3) HTN (hypertension) Current Visit: Yes Status: Chronic Assessment and plan: controlled Qualifiers: Hypertension type: essential hypertension Qualified Code(s): I10 - Essential (primary) hypertension (4) Hypothyroidism Current Visit: Yes Status: Chronic Assessment and plan: Continue synthroid Qualifiers: Hypothyroidism type: unspecified Qualified Code(s): E03.9 - Hypothyroidism , unspecified - Subjective Interval history: she is eating well. her abdominal pain is better. no nausea. no vomiting. - Constitutional Vitals: Temp Pulse Resp BP Pulse Ox 97.9 F 65 16 110/74 92 10/30/16 11:08 10/30/16 11:08 10/30/16 11:08 10/30/16 11:08 10/30/16 11:08 General appearance: Present: cooperative, A&O X 3, pleasant, obese, answers questions appropriately - Eye Eye exam: Present: PERRL, sclera anicteric - Neck Neck exam general surgery: Present: supple, trachea midline. Absent: lymphadenopathy - Respiratory Respiratory exam: Present: CTAB - Cardiovascular Cardiovascular exam: Present: RRR - GI/Abdominal GI/Abdominal exam: Present: normal bowel sounds, soft. Absent: distended, tenderness - Extremities Exam Extremities exam: Absent: pedal edema - Back Exam Back exam: Absent: CVA tenderness (L), CVA tenderness (R) - Neurological Exam Neurological exam: Present: alert, no focal deficits, strengths equal and symetr throughout. Absent: facial droop, speech deficit - Skin Skin exam: Absent: rash Internal Medicine: Result - Labs CBC & Chem 7: 10/29/16 03:34 10/29/16 03:34 - ABG Interpretation ABG results: PT/INR, D-dimer PT 12.9 Seconds (9.4-12.1) H 10/28/16 15:50 Consult Discharge Plan - Plan Referrals: Atul Ritchie Jr, MD [Primary Care Provider] -
[2016-10-31] MEDS: MetroNIDAZOLE 500 MG/100 ML 500 MG/100 ML BAG IVPB SCH (05:37)
[2016-10-31] MEDS: *HR* Enoxaparin 40 MG/0.4 ML SYRINGE SQ SCH (05:38)
[2016-10-31 06:21] LABS: Basophils # 0.1 K/mcL (0.0-0.2); Basophils % 0.6 %; Eosinophils # 0.4 K/mcL (0.0-0.6); Eosinophils % 5.1 %; Hematocrit 38.2 % (35.3-44.9); Hemoglobin 12.5 g/dL (11.5-15.4); Immature Granulocytes % 0.5 % (0-4); Lymphocytes # 2.1 K/mcL (0.6-4.6); Mean Corpuscular HGB Conc 32.7 g/dL (31.6-35.5); Mean Corpuscular Hemoglobin 29.5 pg (28.0-33.3); Mean Corpuscular Volume 90.1 fL (83.0-100.0); Mean Platelet Volume 10.8 fL (9.4-12.4); Monocytes # 0.7 K/mcL (0.0-1.3); Monocytes % 8.7 %; Neutrophils # 5.1 K/mcL (1.6-8.9); Platelet Count 201 K/mcL (140-400); Red Blood Count 4.24 M/mcL (3.82-4.97); Red Cell Distribution Width 13.4 % (11.5-14.5); Segmented Neutrophils % 60.1 %
[2016-10-31 06:37] LABS: Alanine Aminotransferase 14 Units/L (0-55); Albumin 2.8 g/dL (3.5-5.0); Albumin/Globulin Ratio 0.8 (1.1-2.2); Alkaline Phosphatase 97 Units/L (38-126); Aspartate Amino Transferase 13 Units/L (5-34); BUN/Creatinine Ratio 16 (6-26); Bilirubin,Direct 0.3 mg/dL (0.0-0.5); Bilirubin,Indirect 0.4 mg/dL (0.0-1.2); Bilirubin,Total 0.7 mg/dL (0.2-1.2); Blood Urea Nitrogen 13 mg/dL (7-20); Carbon Dioxide 25 mEq/L (19-29); Chloride 107 mEq/L (98-109); Globulin 3.4 g/dL (2.4-3.5); Glucose 110 mg/dL (70-99); Magnesium 1.7 mg/dL (1.6-2.6); Osmolality,Calculated 293 (280-300); Phosphorous 3.5 mg/dL (2.3-4.7); Sodium 141 mEq/L (136-145); Total Protein 6.2 g/dL (6.0-8.3); eGFR For African Americans > 60 (> 60); eGFR For Non-African Americans > 60 (> 60)
[2016-10-31 06:41] LABS: Potassium 3.9 mEq/L (3.5-4.5)
[2016-10-31] MEDS: Insulin LISPRO 300 UNITS/3 ML VIAL SQ SCH (08:07)
[2016-10-31] MEDS: Aspirin Enteric Coated 81 MG Tablet PO SCH (08:10)
[2016-10-31 08:35] VITALS: BP 146/74
--- NOTE | 2016-10-31 09:19 | Discharge Summary ---
Date of Encounter: 10/31/16 Time of Encounter: 08:30 - Discharge Diagnosis (1) Sepsis Priority: Primary Status: Acute Qualifiers: Sepsis type: sepsis due to unspecified organism Qualified Code(s): A41.9 - Sepsis, unspecified organism (2) Diverticulitis of colon Priority: Primary Status: Acute (3) HTN (hypertension) Priority: Secondary Status: Chronic Qualifiers: Hypertension type: essential hypertension Qualified Code(s): I10 - Essential (primary) hypertension (4) Hypothyroidism Priority: Secondary Status: Chronic Qualifiers: Hypothyroidism type: unspecified Qualified Code(s): E03.9 - Hypothyroidism , unspecified - Discharge Medications Prescriptions: Levofloxacin [Levaquin] 500 mg PO DAILY #6 tablet MetroNIDAZOLE [Flagyl] 500 mg PO TID #18 tablet Home Medications: Aspirin Enteric Coated [Aspirin EC] 81 mg PO DAILY 10/28/16 [History] Atorvastatin [Lipitor] 40 mg PO HS 10/28/16 [History] Carvedilol 12.5 mg PO BID 10/28/16 [History] Fluticasone Propionate Nasal [Flonase] 50 mcg NS DAILY 10/28/16 [History] Levothyroxine [Synthroid] 88 mcg PO 0630 10/28/16 [History] Losartan Potassium [Cozaar] 50 mg PO DAILY 10/28/16 [History] Metformin [Glucophage] 500 mg PO DAILY PRN 10/28/16 [History] NIFEdipine [Nifedipine ER] 30 mg PO DAILY 10/28/16 [History] Omeprazole [PriLOSEC] 20 mg PO DAILY 10/28/16 [History] Levofloxacin [Levaquin] 500 mg PO DAILY #6 tablet 10/31/16 [Rx] MetroNIDAZOLE [Flagyl] 500 mg PO TID #18 tablet 10/31/16 [Rx] Allergies/Adverse Reactions: Allergies No Known Allergies Allergy (Verified 10/28/16 12:18) Date of admission: 10/28/16 18:13 Primary care physician: Atul Ritchie Jr, MD - Patient Status Disposition: Home, Self-Care Condition: Good Functional capacity at discharge: independent ambulation Overall status at discharge: patient is progressing back to baseline - Discharge Instructions Instructions: Diverticulitis (DC) Follow Up With: Myriam Pisano CNP [Advanced Practice Nurse] - 04/19/17 9:40 am Additional Instructions: Check your blood pressure twice daily (same time in the morning and the evening) , make a log and bring number to doctor's appt. Check blood sugar before meals and at bedtime. Make a log, and bring numbers to doctor's appt. Drink plenty of fluids. avoid constipation. Your CAT scan of the abdomen showed a 6 mm high attenuation nodular lesion off the mid right kidney and a 9mm low-attenuation lesion within the spleen. You will need a repeat CAT scan to assess further these lesions. Follow up with your primary care doctor after this episode of acute diverticulitis, you may need a colonoscopy in 6-8 weeks. - Diet and Activity Activity: resume usual activities as tolerated Diet: diabetic diet, low fat, low cholesterol, low salt diet, other ( diverticular diet.) Interval History: patient has no abdominal pain. she is eating and ambulating well. Hospital course: Ms. Pan is a 66 year old female with past medical history of hypertension, CAD and diabetes who presented with a chief complaint of epigastric pain, nausea and vomiting. CT of the abdomen and pelvis revealed acute moderate wall thickening of the transverse colon with Aygestin inflammatory fat stranding and a small anterior transverse colonic diverticulum suspected acute transverse colonic diverticulitis vs colonic malignancy, 6 mm high attenuation nodular lesion off the mid right kidney and a 9mm low-attenuation lesion within the spleen. She was admitted with diagnoses of sepsis secondary to acute diverticulitis and was started empiric Antibiotics with IV ceftriaxone and metronidazole. Patient improved clinically with resolution of abdominal pain and was tolerating diet well. Patient remain in the hospital until final blood cultures came back positive for quality as negative staph, likely contaminant. She was discharged on oral levofloxacin and oral metronidazole for a total of 10 days. Her blood pressure medications were held on admission due to sepsis and low normal blood pressure. She was resume on her losartan at discharge. Her nifedipine 30 mg by mouth daily was held at discharge. Patient was instructed to check her blood pressure twice lately. PLAN: Follow-up with primary care physician in one week. Patient will require a colonoscopy in 6-8 weeks and at CAT scan of the abdomen and pelvis in a few months to address lesions and right kidney and spleen. Patient instructed to check her blood pressure at home as well as her sugar levels Patient verbalized understanding and agree with the plan. All questions answered. - Time Spent with Patient Total time spent providing and/or coordinating discharge services: - Constitutional Vitals: Temp Pulse Resp BP Pulse Ox 97.6 F 74 18 146/74 94 10/31/16 08:28 10/31/16 08:28 10/31/16 08:28 10/31/16 08:28 10/31/16 08:28 General appearance: Present: cooperative, A&O X 3, pleasant, obese, answers questions appropriately - Eye Eye exam: Present: PERRL, sclera anicteric - Respiratory Respiratory exam: Present: CTAB - Cardiovascular Cardiovascular exam: Present: RRR - GI/Abdominal GI/Abdominal exam: Present: normal bowel sounds, soft. Absent: distended, tenderness - Extremities Exam Extremities exam: Absent: pedal edema - Back Exam Back exam: Absent: CVA tenderness (L), CVA tenderness (R) - Neurological Exam Neurological exam: Present: alert, oriented X3, no focal deficits, strengths equal and symetr throughout. Absent: facial droop, speech deficit - Skin Skin exam: Absent: rash
[2016-10-31] MEDS: Fluticasone Propionate Nasal 50 MCG/SPRAY BOTTLE NS SCH (11:34)
== END 2016-10-31 13:00 | disposition home or self-care (01) | DRG 872 ==
LOC: EMEROO 12:17 → 3ANU 12:17 → SUATTDRO 18:13 → 3ANU 18:23
PROVIDERS: ADMIT Internal Medicine; ATTEND Internal Medicine

== ENCOUNTER 2017-02-27 09:20 | Inpatient (IN) ==
--- NOTE | 2017-02-27 09:42 | History & Physical Report ---
Date of Encounter: 02/27/17 Time of Encounter: 09:41 24 Hour HP Update - Instructions Instructions: If the History and Physical is less than 30 days old and was completed prior to A.M. admission and or procedure and has NOT been updated on calendar day of procedure please complete this update prior to performing procedure. - Update Patient reports changes in Medical Condition: No Changes in examination, assessment, or condition: No Changes in Medication: No Preop tests/diagnostics Reviewed: Yes Surgery Remains Indicated: Yes Consent for Planned Operative Procedure(s) Verified: Yes - Pre-Operative Checklist Preoperative Checklist Indicated: Yes Prophylactic Antibiotic Ordered: Yes Home Medications Include Beta Gee: Yes Beta Gee Taken Today (Day of Surgery): Yes Beta Gee Taken Yesterday (Day Prior to Surgery): Yes Is VTE Prophylaxis Indicated?: Yes
[2017-02-27] MEDS ORDERED: Dexamethasone 4 MG/ML VIAL ONE (09:46)
[2017-02-27] MEDS ORDERED: Lidocaine -MPF 2% 2 ML VIAL ONE (09:46)
[2017-02-27] MEDS ORDERED: Ondansetron 4 MG/2 ML VIAL ONE (09:46)
[2017-02-27] MEDS ORDERED: *HR* Succinylcholine 200 MG/10 ML VIAL IVP ONE (09:46)
[2017-02-27] MEDS ORDERED: *HR* Propofol 200 MG/20 ML VIAL IVP ONE (09:47)
[2017-02-27] MEDS ORDERED: *HR* FentaNYL (PF) 100 MCG/2 ML VIAL ONE (09:47)
[2017-02-27] MEDS ORDERED: Piperacillin/Tazobactam 3.375 GM in D5% in Water (Mini-Bag+) 100 ML IVPB ONE (09:48)
[2017-02-27] MEDS ORDERED: Lidocaine -MPF 1% 2 ML VIAL ID ONE (09:48)
[2017-02-27] MEDS ORDERED: Ringers Solution, Lactated 1,000 ML IVC SCH (10:00)
--- NOTE | 2017-02-27 10:02 | Anesthesia Evaluation PreOp ---
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 etiology of AL in 2010)) Pulmonary History: Denies Any Significant HX FUR EXAMINER History: Denies Any Significant HX Other Medical History: Renal (cyst on kidney), Diabetes Type II (oral medications only), Thyroid (hypothyroidism), GERD (hiatal hernia - symptoms controlled with omeprazole) Anesthesia History: No Prior Anesthetic Complications, Past Anesthesia (tubal, suction D&C, hysterectomy, oophorectomy, cholecystectomy, thyroidectomy ( thyroid CA)) Alcohol Use: none Drug use: none Medications and Allergies Aspirin Enteric Coated [Aspirin EC] 81 mg PO DAILY 10/28/16 [History] Atorvastatin [Lipitor] 40 mg PO HS 10/28/16 [History] Carvedilol 12.5 mg PO BID 10/28/16 [History] Fluticasone Propionate Nasal [Flonase] 50 mcg NS DAILY 10/28/16 [History] Levothyroxine [Synthroid] 88 mcg PO 0630 10/28/16 [History] Losartan Potassium [Cozaar] 50 mg PO DAILY 10/28/16 [History] NIFEdipine [Nifedipine ER] 30 mg PO DAILY 10/28/16 [History] Omeprazole [PriLOSEC] 20 mg PO DAILY 10/28/16 [History] metFORMIN [Glucophage] 250 - 500 mg PO DAILY PRN 10/28/16 [History] Tramadol HCl [Ultram] 50 mg PO Q6H PRN 01/18/17 [History] Allergies No Known Allergies Allergy (Verified 02/27/17 09:58) - Meds/Allergy Pre-op Review Medications Reviewed: Yes Allergies Reviewed: Yes Beta Blockers on Current Med List: Yes (coreg) If Beta Blockers taken, Date/Time (Last Dose taken): 02-27-17 coreg at 9 am Anesthesia Results - Labs Laboratory Tests 02/13/17 02/13/17 02/25/17 09:26 09:26 13:45 WBC 7.3 Hgb 14.1 Hct 43.7 Plt Count 229 Sodium 143 Potassium 3.9 Chloride 108 Carbon Dioxide 28 BUN 17 Creatinine 0.76 Est GFR ( Amer) > 60 Est GFR (Non-Af Amer) > 60 BUN/Creatinine Ratio 22 Glucose 110 H Est Mean Plasma Glucose 117 Hemoglobin A1c 5.7 H Calculated Osmolality 298 Calcium 9.3 - Imaging EKG: report reviewed, image reviewed (ST) Anesthesia Exam Weight: 82 kg NPO (# of Hours): >> 8 hrs - HEENT Pupil (Motor): Pupils equal, EOMI Mallampati: II (short thyromental distance) Teeth: Poor dentition Oral Opening: Greater than 3 - FUR EXAMINER LOC: Oriented FUR EXAMINER Motor: Normal RUE, Normal LUE, Normal RLE, Normal LLE, Normal Face - Cardiac Rhythm: Regular Murmur: Systolic (very low grade MARIA E) - Pulmonary Breath Sounds: bilateral Clear Respiratory Effort: Symmetrical Anesthesia Assess/Plan ASA Score: 3 Modified Eze Scale for Level of Consciousness: Cooperative, oriented, and tranquil Anesthetic Plan: General Monitoring Plan: Standard Monitors Recovery Plan: PACU
[2017-02-27] MEDS ORDERED: *HR* Midazolam HCl 2 MG/2 ML VIAL ONE (10:17)
[2017-02-27] MEDS ORDERED: Albuterol 2.5 MG/3 ML NEBULIZER IH ONE (10:25)
[2017-02-27] MEDS ORDERED: Albuterol 2.5 MG/3 ML NEBULIZER ONE (10:29)
[2017-02-27] MEDS ORDERED: Bupivacaine/EPI 1:200k 0.25%PF 30 ML VIAL ONE (11:41)
[2017-02-27] MEDS ORDERED: *HR* HYDROmorphone 2 MG/ML SYRINGE ONE (13:16)
[2017-02-27] MEDS ORDERED: *HR* Morphine 2 MG/ML SYRINGE IVP PRN (13:22)
[2017-02-27] MEDS ORDERED: *HR* Labetalol 20 MG/4 ML SYRINGE IVP PRN (13:22)
[2017-02-27] MEDS ORDERED: Ondansetron 4 MG/2 ML VIAL IVP ONE (13:22)
[2017-02-27] MEDS ORDERED: EPHEDrine 50 MG/ML VIAL ONE (13:40)
--- NOTE | 2017-02-27 14:33 | Operative Note ---
Date of procedure: 02/27/17 Pre-op diagnosis: stricture transverse colon Post-op diagnosis: same Procedure: extended right colectomy Complications: none apparent Anesthesia: GETA Local Anesthetics: 0.25% Sensorcaine HCL with Epinephrine 1:200,000 SubQ (cc) ( 20mL) Surgeon: Aaron Walter Estimated blood loss (cc): 50 IV fluids (cc): 1,500 Specimen: right colon, omentum and segment mid transverse colon Condition: stable Disposition: PACU Procedure in Detail: The patient was brought to the operating room where she was placed supine on the operating room table. The patient was appropriately identified as to person and procedure. The accuracy of this information was confirmed by the procedure team. The patient was then intubated and anesthetized under the supervision of Dr. Rosa Newberry. A Melendez catheter was inserted. The abdomen was prepped and draped in usual sterile fashion. Several milliliters of 0.25% bupivacaine with 1 200,000 epinephrine was infiltrated into the proposed midline incision which extended from the xiphoid to the umbilicus. The skin was then incised with dissection extended to the fascia. Bleeding points were controlled with electrocautery. The fascia was then incised along the linea alba. The abdomen was entered atraumatically. Exposure was facilitated by a self-retaining Omni tract retractor. The liver appeared grossly normal with evidence of a previous cholecystectomy. The expected scarring in the right upper quadrant related to this surgery was present. The patient also had pelvic surgery as well as a prior appendectomy with the expected scarring. There were several adhesions to the anterior abdominal wall which required dissection as well as adhesions of omentum and bowel to the liver. Once these were mobilized, dissection proceeded proximally to mobilize the ascending colon and the cecum. The small bowel was adherent within the pelvis. This was readily mobilized with sharp dissection. The terminal ileum was transected with an Ethicon 75 mm linear stapler (blue cartridge). The stricture within the mid transverse colon was not readily identified in the transverse colon by palpation. I selected a point mid transverse colon and transect the bowel at this location with an Ethicon 75 mm linear stapler (again blue cartridge). The right colic vessels were divided between curved Karyn clamps and ligated with 2-0 silk. The mesenteric dissection was completed with a CovAwesomeHighlighter Impact Dissector. The right colon was removed from the from the patient placed on the back table. I opened the 2 staple lines and examined the cecum, ascending and proximal transverse colon. No stricture was identified. Further examination of the remaining transverse colon identified the stricture just distal to the staple line. The colon was transected distal to the stricture with the Ethicon 75 mm linear stapler and the mesentery was dissected with the aid of the Team-Match Impact dissector. This specimen would be identified as mid transverse colon and sent as a separate specimen. The omentum was adherent within the pelvis making it necessary to sharply dissect this omentum and resect it with the aid of the Covidien Impact dissector. This allowed full mobilization of the terminal ileum, which was placed side by side with the distal transverse colon. The 2 segments were approximated with interrupted 3-0 silk. The ends were opened, a stapled side to side functional end to end anastomosis was completed with the Ethicon 75 mm linear stapler. The remaining defect in the small bowel/colon was closed with interrupted 3-0 silk, reinforced with an Ethicon TX 60 mm stapler. The mesenteric defect was closed with interrupted 3-0 silk. The abdomen and pelvis was inspected for adequate hemostasis. There were no additional findings. It should be noted that examination of the resected mid transverse colon contained the stricture in question. The peritoneum was then closed with running interlocking 0 Vicryl. The fascia was closed with interrupted [id number] 0 Vicryl. Additional bupivacaine with epinephrine was infiltrated into the fascial closure. The subcutaneous tissue was reapproximated with 3-0 Vicryl. Skin edges were approximated with dhara. A dry sterile dressing was applied. The patient was taken to recovery in stable condition. Needle, sponge, and instrument counts were correct at the close of the case. Total volume of 0.25% bupivacaine with 1-200,000 units of epinephrine used during this procedure, 20 mL. Specimen - 1)right colon, 2)omentum, 3) segment mid transverse colon
--- NOTE | 2017-02-27 14:51 | Anesthesia Evaluation Post Op ---
Date of Encounter: 02/27/17 Time of Encounter: 14:51 - Vital Signs Vital Signs: Vital Signs/O2 Sat/Glucose, Most Current Temp Pulse Resp BP Pulse Ox 02/27/17 14:22 82 16 114/57 97 02/27/17 14:12 84 16 108/56 97 02/27/17 14:02 98.1 F 82 12 88/45 94 - Lungs Lungs: Clear Ascult./Percussion - Airway Airway: Non-obstructed - Cardiovascular Regular Rate - Mental Status Mental Status: Alert & Oriented, Answers Appropriately - Pain Pain Scale: 2 - Nausea Vomiting Nausea Vomiting: Not Present - Hydration Hydration: Tolerates oral liquids - Discharge PostOp Status: Transfer Patient to floor
[2017-02-27] MEDS ORDERED: Dextrose Gel 15 GM PO PRN (15:02)
[2017-02-27] MEDS ORDERED: D5% in Water 1,000 ML IVC PRN (15:02)
[2017-02-27] MEDS ORDERED: *HR* Dextrose 50 % in Water (Syg) 50 ML SYRINGE IVP PRN (15:02)
[2017-02-27] MEDS: *HR* Metoprolol 5 MG/5 ML VIAL IVP SCH ×2 (15:56→21:30)
[2017-02-27] MEDS: Ringers Solution, Lactated 1,000 ML IVC SCH (15:56)
[2017-02-27] MEDS: Albuterol 2.5 MG/3 ML NEBULIZER IH SCH ×2 (16:09→22:27)
[2017-02-27] MEDS: Insulin LISPRO 300 UNITS/3 ML VIAL SQ SCH ×3 (17:18→23:25)
[2017-02-27] MEDS: *HR* HYDROmorphone (PF) 1 MG/ML SYRINGE IVP PRN ×3 (17:23→23:25)
[2017-02-28] MEDS: Insulin LISPRO 300 UNITS/3 ML VIAL SQ SCH ×5 (03:27→21:47)
[2017-02-28] MEDS: *HR* Metoprolol 5 MG/5 ML VIAL IVP SCH ×4 (03:29→22:52)
[2017-02-28] MEDS: Ringers Solution, Lactated 1,000 ML IVC SCH (03:30)
[2017-02-28] MEDS: *HR* HYDROmorphone (PF) 1 MG/ML SYRINGE IVP PRN ×4 (03:30→21:44)
[2017-02-28 04:15] LABS: Basophils % 0.1 %; Hematocrit 38.5 % (35.3-44.9); Hemoglobin 12.7 g/dL (11.5-15.4); Immature Granulocytes % 0.3 % (0-4); Lymphocytes # 1.4 K/mcL (0.6-4.6); Lymphocytes % 8.3 %; Mean Corpuscular Hemoglobin 30.8 pg (28.0-33.3); Mean Corpuscular Volume 93.2 fL (83.0-100.0); Mean Platelet Volume 11.2 fL (9.4-12.4); Monocytes % 7.6 %; Platelet Count 186 K/mcL (140-400); Red Blood Count 4.13 M/mcL (3.82-4.97); Red Cell Distribution Width 13.1 % (11.5-14.5); Segmented Neutrophils % 83.7 %
[2017-02-28 04:19] LABS: Monocytes # 1.3 K/mcL (0.0-1.3); Neutrophils # 13.7 K/mcL (1.6-8.9)
[2017-02-28] MEDS: Albuterol 2.5 MG/3 ML NEBULIZER IH SCH ×4 (04:20→21:05)
[2017-02-28 04:32] LABS: BUN/Creatinine Ratio 24 (6-26); Blood Urea Nitrogen 18 mg/dL (7-20); Calcium 9.1 mg/dL (8.6-10.8); Carbon Dioxide 25 mEq/L (19-29); Chloride 106 mEq/L (98-109); Glucose 116 mg/dL (70-99); Osmolality,Calculated 295 (280-300); Potassium 4.7 mEq/L (3.5-4.5); Sodium 141 mEq/L (136-145); eGFR For African Americans > 60 (> 60); eGFR For Non-African Americans > 60 (> 60)
[2017-02-28] MEDS: NIFEdipine XL (24 HR) 30 MG TAB.ER.24 PO SCH (09:24)
[2017-02-28] MEDS: Pantoprazole 40 MG VIAL IVP SCH (09:25)
[2017-02-28] MEDS: Levothyroxine Sodium 100 MCG VIAL IVP SCH (09:25)
--- NOTE | 2017-02-28 13:45 | General Surgery Progress Note ---
Date of Encounter: 02/28/17 Time of Encounter: 13:39 Subjective Narrative: General Surgery POD #1 Afebrile, currently 98.8, pulse 84-90, respirations 15, blood pressure 108/ 66. SPO2 on 3 L/min nasal cannula 92% Lungs: Basilar rales; requires additional encouragement to deep breathe and cough. Continue aerosol therapy Cardiac: Regular rate, no appreciable murmur Abdomen: Soft, incisional tenderness as expected. Incision clean and dry. Dressing removed. Hypoactive bowel sounds, no BM or flatus. Laboratories: White count 16.4- Response to surgery; hemoglobin 12.7 with hematocrit 38.5. 13.7% neutrophils, also response to surgery Electrolytes, BUN and creatinine within an susceptible range, potassium 4.7 pathology pending Impression: Postoperative day 1, status post extended right colectomy. Acceptable status Plan: Remove Melendez in a.m.; encourage deep breathing, coughing and incentive spirometry. Ambulate out of bed Objective Vital Signs - Last 8 Hours Temp Pulse Resp BP Pulse Ox 02/28/17 11:59 98.8 F 84 15 108/66 92 02/28/17 10:46 18 95 02/28/17 07:54 97.6 F 90 15 99/65 95 Intake and Output 02/27/17 02/28/17 02/28/17 23:59 07:59 15:59 Intake Total 1000 / 1000 Balance 1000 / 1000 Intake: IV Fluids 1000 / 1000 Lactated Ringers 1,000 ML 1000 / 1000 @ 100 mls/hr IVC .Q10H [facility] Rx#:[id number] Other: Weight 84.096 kg Blood Glucose* 109 98 101 Patient Weight 02/28/17 23:59 Weight 84.096 kg - Labs 02/28/17 03:43 02/28/17 03:43 Diabetes panel 02/28/17 Range/Units 03:43 Sodium 141 (136-145) mEq/L Potassium 4.7 H (3.5-4.5) mEq/L Chloride 106 (98-109) mEq/L Carbon Dioxide 25 (19-29) mEq/L BUN 18 (7-20) mg/dL Creatinine 0.76 (0.57-1.11) mg/dL Glucose 116 H (70-99) mg/dL Calcium 9.1 (8.6-10.8) mg/dL Calcium panel 02/28/17 Range/Units 03:43 Calcium 9.1 (8.6-10.8) mg/dL Pituitary panel 02/28/17 Range/Units 03:43 Sodium 141 (136-145) mEq/L Potassium 4.7 H (3.5-4.5) mEq/L Chloride 106 (98-109) mEq/L Carbon Dioxide 25 (19-29) mEq/L BUN 18 (7-20) mg/dL Creatinine 0.76 (0.57-1.11) mg/dL Glucose 116 H (70-99) mg/dL Calcium 9.1 (8.6-10.8) mg/dL Adrenal panel 02/28/17 Range/Units 03:43 Sodium 141 (136-145) mEq/L Potassium 4.7 H (3.5-4.5) mEq/L Chloride 106 (98-109) mEq/L Carbon Dioxide 25 (19-29) mEq/L BUN 18 (7-20) mg/dL Creatinine 0.76 (0.57-1.11) mg/dL Glucose 116 H (70-99) mg/dL Calcium 9.1 (8.6-10.8) mg/dL - VTE Documentation of Mechanical Device: Intermittent pneumatic compression device Consult Discharge Plan - Plan Referrals: Atul Ritchie Jr, MD [Primary Care Provider] -
[2017-02-28] MEDS: D5% in 0.45% NACL 1,000 ML IVC SCH (15:33)
[2017-03-01] MEDS: Insulin LISPRO 300 UNITS/3 ML VIAL SQ SCH ×7 (00:23→21:11)
[2017-03-01] MEDS: D5% in 0.45% NACL 1,000 ML IVC SCH (03:05)
[2017-03-01] MEDS: *HR* HYDROmorphone (PF) 1 MG/ML SYRINGE IVP PRN ×5 (03:12→21:12)
[2017-03-01] MEDS: Albuterol 2.5 MG/3 ML NEBULIZER IH SCH ×4 (04:36→21:48)
[2017-03-01] MEDS: *HR* Metoprolol 5 MG/5 ML VIAL IVP SCH ×4 (04:51→21:12)
[2017-03-01 05:01] LABS: Basophils % 0.2 %; Eosinophils # 0.1 K/mcL (0.0-0.6); Eosinophils % 0.9 %; Hematocrit 33.9 % (35.3-44.9); Immature Granulocytes % 0.6 % (0-4); Lymphocytes # 1.6 K/mcL (0.6-4.6); Mean Corpuscular HGB Conc 31.9 g/dL (31.6-35.5); Mean Corpuscular Hemoglobin 29.7 pg (28.0-33.3); Mean Corpuscular Volume 93.1 fL (83.0-100.0); Mean Platelet Volume 10.9 fL (9.4-12.4); Monocytes % 9.1 %; Neutrophils # 8.1 K/mcL (1.6-8.9); Platelet Count 166 K/mcL (140-400); Red Blood Count 3.64 M/mcL (3.82-4.97); Red Cell Distribution Width 13.1 % (11.5-14.5); Segmented Neutrophils % 74.2 %
[2017-03-01 05:05] LABS: Hemoglobin 10.8 g/dL (11.5-15.4)
[2017-03-01 05:19] LABS: BUN/Creatinine Ratio 18 (6-26); Blood Urea Nitrogen 13 mg/dL (7-20); Calcium 8.5 mg/dL (8.6-10.8); Carbon Dioxide 30 mEq/L (19-29); Chloride 103 mEq/L (98-109); Glucose 136 mg/dL (70-99); Osmolality,Calculated 286 (280-300); Sodium 137 mEq/L (136-145); eGFR For African Americans > 60 (> 60); eGFR For Non-African Americans > 60 (> 60)
[2017-03-01 05:21] LABS: Potassium 3.5 mEq/L (3.5-4.5)
[2017-03-01] MEDS: Pantoprazole 40 MG VIAL IVP SCH (08:27)
[2017-03-01] MEDS: Levothyroxine Sodium 100 MCG VIAL IVP SCH (08:28)
[2017-03-01] MEDS: NIFEdipine XL (24 HR) 30 MG TAB.ER.24 PO SCH (08:28)
[2017-03-01] MEDS: Ondansetron 4 MG/2 ML VIAL IVP PRN (12:03)
--- NOTE | 2017-03-01 12:06 | General Surgery Progress Note ---
Date of Encounter: 03/01/17 Time of Encounter: 12:01 Subjective Patient reports: nausea Narrative: General Surgery - POD #2 Patient complaining of nausea; no emesis. Moderate incisional pain as expected Afebrile, 98.2, pulse 92, respirations 16, blood pressure 137/79. SPO2 on 2 L/m nasal cannula 96% Lungs: Clear to auscultation, patient still requires encouragement to take deep breaths. Patient admits to occasional dominant pain with deep inspiration Cardiac: Regular rate, no appreciable murmur Abdomen: Slightly distended, soft, active Bowel sounds but no reported flatus or BM. Urine output: 820 mL. Melendez to be removed today Laboratories: White count 10.9; hemoglobin 10.8 with hematocrit 33.9; platelet count 166,000. Differential has returned to normal. Electrolytes notable for potassium 3.5 (borderline); BUN 13, creatinine 0.71 Accu-Cheks 98-165 Pathology: Pending Impression: Postoperative day #2, status post extended right colectomy for stricture mid transverse colon. Awaiting pathology Acceptable postoperative state Diabetes mellitus, satisfactory controlled blood sugars; will reduce sliding scale coverage continue symptomatic control of nausea Objective Vital Signs - Last 8 Hours Temp Pulse Resp BP Pulse Ox 03/01/17 11:59 98.3 F 90 15 138/84 90 03/01/17 06:30 98.2 F 92 16 137/79 96 03/01/17 04:38 18 94 Intake and Output 02/28/17 03/01/17 03/01/17 23:59 07:59 15:59 Intake Total 200 / 200 1000 / 1000 Output Total 820 / 820 300 / 300 Balance 200 / 200 180 / 180 -300 / -300 Intake: IV Fluids 1000 / 1000 D5% And 0.45% Nacl 1000 1000 / 1000 Ml Bag 1,000 ML @ 90 mls/ hr IVC .[id number] [facility] Rx#: [id number] Oral 200 / 200 Output: Urine 300 / 300 Catheter 820 / 820 Other: Meal NPO # Voids 1 Weight 84.368 kg Blood Glucose* 168 232 117 Patient Weight 03/01/17 23:59 Weight 84.368 kg - Labs 03/01/17 04:30 03/01/17 04:30 Diabetes panel 03/01/17 Range/Units 04:30 Sodium 137 (136-145) mEq/L Potassium 3.5 D (3.5-4.5) mEq/L Chloride 103 (98-109) mEq/L Carbon Dioxide 30 H (19-29) mEq/L BUN 13 (7-20) mg/dL Creatinine 0.71 (0.57-1.11) mg/dL Glucose 136 H (70-99) mg/dL Calcium 8.5 L (8.6-10.8) mg/dL Calcium panel 03/01/17 Range/Units 04:30 Calcium 8.5 L (8.6-10.8) mg/dL Pituitary panel 03/01/17 Range/Units 04:30 Sodium 137 (136-145) mEq/L Potassium 3.5 D (3.5-4.5) mEq/L Chloride 103 (98-109) mEq/L Carbon Dioxide 30 H (19-29) mEq/L BUN 13 (7-20) mg/dL Creatinine 0.71 (0.57-1.11) mg/dL Glucose 136 H (70-99) mg/dL Calcium 8.5 L (8.6-10.8) mg/dL Adrenal panel 03/01/17 Range/Units 04:30 Sodium 137 (136-145) mEq/L Potassium 3.5 D (3.5-4.5) mEq/L Chloride 103 (98-109) mEq/L Carbon Dioxide 30 H (19-29) mEq/L BUN 13 (7-20) mg/dL Creatinine 0.71 (0.57-1.11) mg/dL Glucose 136 H (70-99) mg/dL Calcium 8.5 L (8.6-10.8) mg/dL - VTE Documentation of Mechanical Device: Intermittent pneumatic compression device Consult Discharge Plan - Plan Referrals: Atul Ritchie Jr, MD [Primary Care Provider] -
--- NOTE | 2017-03-01 12:13 | General Surgery Progress Note ---
Date of Encounter: 03/01/17 Time of Encounter: 12:09 Subjective Narrative: General Surgery - POD #5 patient resting comfortably in bed. C/o that dressing was wet, "so I removed it" The wound is clean; it had been redressed by Nursing, after patient removed the dressing. The current dressing was removed and replaced with dry gauze dressing followed by Kerlix wrap. The patient's behavior and non compliance with efforts to care for him is problematic and poses significant risk of infection as well as other complications. Objective Vital Signs - Last 8 Hours Temp Pulse Resp BP Pulse Ox 03/01/17 11:59 98.3 F 90 15 138/84 90 03/01/17 06:30 98.2 F 92 16 137/79 96 03/01/17 04:38 18 94 Intake and Output 02/28/17 03/01/17 03/01/17 23:59 07:59 15:59 Intake Total 200 / 200 1000 / 1000 Output Total 820 / 820 300 / 300 Balance 200 / 200 180 / 180 -300 / -300 Intake: IV Fluids 1000 / 1000 D5% And 0.45% Nacl 1000 1000 / 1000 Ml Bag 1,000 ML @ 90 mls/ hr IVC .[id number] [facility] Rx#: [id number] Oral 200 / 200 Output: Urine 300 / 300 Catheter 820 / 820 Other: Meal NPO # Voids 1 Weight 84.368 kg Blood Glucose* 168 232 117 Patient Weight 03/01/17 23:59 Weight 84.368 kg - Labs 03/01/17 04:30 03/01/17 04:30 Diabetes panel 03/01/17 Range/Units 04:30 Sodium 137 (136-145) mEq/L Potassium 3.5 D (3.5-4.5) mEq/L Chloride 103 (98-109) mEq/L Carbon Dioxide 30 H (19-29) mEq/L BUN 13 (7-20) mg/dL Creatinine 0.71 (0.57-1.11) mg/dL Glucose 136 H (70-99) mg/dL Calcium 8.5 L (8.6-10.8) mg/dL Calcium panel 03/01/17 Range/Units 04:30 Calcium 8.5 L (8.6-10.8) mg/dL Pituitary panel 08/11/17 Range/Units 04:30 Sodium 137 (136-145) mEq/L Potassium 3.5 D (3.5-4.5) mEq/L Chloride 103 (98-109) mEq/L Carbon Dioxide 30 H (19-29) mEq/L BUN 13 (7-20) mg/dL Creatinine 0.71 (0.57-1.11) mg/dL Glucose 136 H (70-99) mg/dL Calcium 8.5 L (8.6-10.8) mg/dL Adrenal panel 03/01/17 Range/Units 04:30 Sodium 137 (136-145) mEq/L Potassium 3.5 D (3.5-4.5) mEq/L Chloride 103 (98-109) mEq/L Carbon Dioxide 30 H (19-29) mEq/L BUN 13 (7-20) mg/dL Creatinine 0.71 (0.57-1.11) mg/dL Glucose 136 H (70-99) mg/dL Calcium 8.5 L (8.6-10.8) mg/dL - VTE Documentation of Mechanical Device: Intermittent pneumatic compression device Consult Discharge Plan - Plan Referrals: Atul Ritchie Jr, MD [Primary Care Provider] -
[2017-03-02] MEDS: Insulin LISPRO 300 UNITS/3 ML VIAL SQ SCH ×6 (00:06→22:35)
[2017-03-02] MEDS: *HR* HYDROmorphone (PF) 1 MG/ML SYRINGE IVP PRN ×4 (01:25→18:28)
[2017-03-02] MEDS: D5% in 0.45% NACL 1,000 ML IVC SCH ×3 (04:14→17:51)
[2017-03-02] MEDS: *HR* Metoprolol 5 MG/5 ML VIAL IVP SCH ×4 (04:15→22:36)
[2017-03-02] MEDS: Albuterol 2.5 MG/3 ML NEBULIZER IH SCH ×4 (04:48→22:01)
[2017-03-02 05:31] LABS: Basophils % 0.4 %; Eosinophils # 0.4 K/mcL (0.0-0.6); Eosinophils % 3.2 %; Hematocrit 36.7 % (35.3-44.9); Immature Granulocytes % 0.5 % (0-4); Lymphocytes # 1.9 K/mcL (0.6-4.6); Lymphocytes % 16.5 %; Mean Corpuscular HGB Conc 32.7 g/dL (31.6-35.5); Mean Corpuscular Hemoglobin 30.7 pg (28.0-33.3); Mean Corpuscular Volume 93.9 fL (83.0-100.0); Mean Platelet Volume 11.1 fL (9.4-12.4); Monocytes % 9.2 %; Neutrophils # 7.9 K/mcL (1.6-8.9); Platelet Count 178 K/mcL (140-400); Red Blood Count 3.91 M/mcL (3.82-4.97); Red Cell Distribution Width 13.1 % (11.5-14.5); Segmented Neutrophils % 70.2 %
[2017-03-02 05:47] LABS: BUN/Creatinine Ratio 11 (6-26); Blood Urea Nitrogen 7 mg/dL (7-20); Calcium 8.7 mg/dL (8.6-10.8); Carbon Dioxide 34 mEq/L (19-29); Chloride 102 mEq/L (98-109); Glucose 135 mg/dL (70-99); Osmolality,Calculated 288 (280-300); Potassium 4.2 mEq/L (3.5-4.5); Sodium 139 mEq/L (136-145); eGFR For African Americans > 60 (> 60); eGFR For Non-African Americans > 60 (> 60)
[2017-03-02] MEDS: Pantoprazole 40 MG VIAL IVP SCH (08:47)
[2017-03-02] MEDS: Levothyroxine Sodium 100 MCG VIAL IVP SCH (08:47)
[2017-03-02] MEDS: NIFEdipine XL (24 HR) 30 MG TAB.ER.24 PO SCH (08:47)
--- NOTE | 2017-03-02 12:00 | General Surgery Progress Note ---
Date of Encounter: 03/02/17 Time of Encounter: 11:54 Subjective Patient reports: feels better, still having pain, pain is less Narrative: General Surgery - POD #3 Patient feeling better; still complaining of pain but improved since yesterday Afebrile, current temperature 99.0; pulse 107 range 80 - 107), respirations 16, blood pressure 112/67. SPO2 on nasal cannula at 2 L/m 91-94% Lungs: Clear to auscultation with satisfactory inspiratory effort, no rales or wheezes Cardiac: Heart rate tachycardic at 107 but may be related to activity out of bed; pulse usually running 80-89 Abdomen: Soft, quiet, midline incision is clean and dry. Mild to moderate bilateral subcostal tenderness/pain. Extremities without clubbing cyanosis or edema Laboratories: White count 11.3, hemoglobin 12.0, hematocrit 36.7. Platelets 178 ,000, differential within normal limits Electrolytes, BUN, creatinine within normal limits though bicarbonate is elevated at 34. Accu-Cheks - satisfactory coverage Pathology pending further evaluation by preliminary reports indicate this was a benign stricture of the transverse colon Impression: Postoperative day 3, status post extended right colectomy. Acceptable status. Bowel activity yet to resume; patient encouraged to increase her activity out of bed. Patient encouraged to be more aggressive with her incentive spirometry. Objective Vital Signs - Last 8 Hours Temp Pulse Resp BP Pulse Ox 03/02/17 11:52 99.0 F 107 16 112/67 91 03/02/17 11:05 16 94 03/02/17 08:32 98.7 F 98 16 122/82 93 03/02/17 04:48 16 94 Intake and Output 03/01/17 03/02/17 03/02/17 23:59 07:59 15:59 Intake Total 1000 / 1000 1000 / 1000 Output Total 350 / 350 Balance 650 / 650 1000 / 1000 Intake: IV Fluids 1000 / 1000 1000 / 1000 D5% And 0.45% Nacl 1000 1000 / 1000 Ml Bag 1,000 ML @ 75 mls/ hr IVC .[id number] [facility] Rx#: [id number] Output: Urine 350 / 350 Other: Meal NPO Blood Glucose* 123 119 133 - Labs 03/02/17 04:34 03/02/17 04:34 Diabetes panel 03/02/17 Range/Units 04:34 Sodium 139 (136-145) mEq/L Potassium 4.2 (3.5-4.5) mEq/L Chloride 102 (98-109) mEq/L Carbon Dioxide 34 H (19-29) mEq/L BUN 7 (7-20) mg/dL Creatinine 0.63 (0.57-1.11) mg/dL Glucose 135 H (70-99) mg/dL Calcium 8.7 (8.6-10.8) mg/dL Calcium panel 03/02/17 Range/Units 04:34 Calcium 8.7 (8.6-10.8) mg/dL Pituitary panel 03/02/17 Range/Units 04:34 Sodium 139 (136-145) mEq/L Potassium 4.2 (3.5-4.5) mEq/L Chloride 102 (98-109) mEq/L Carbon Dioxide 34 H (19-29) mEq/L BUN 7 (7-20) mg/dL Creatinine 0.63 (0.57-1.11) mg/dL Glucose 135 H (70-99) mg/dL Calcium 8.7 (8.6-10.8) mg/dL Adrenal panel 03/02/17 Range/Units 04:34 Sodium 139 (136-145) mEq/L Potassium 4.2 (3.5-4.5) mEq/L Chloride 102 (98-109) mEq/L Carbon Dioxide 34 H (19-29) mEq/L BUN 7 (7-20) mg/dL Creatinine 0.63 (0.57-1.11) mg/dL Glucose 135 H (70-99) mg/dL Calcium 8.7 (8.6-10.8) mg/dL - VTE Documentation of Mechanical Device: Intermittent pneumatic compression device Consult Discharge Plan - Plan Referrals: Atul Ritchie Jr, MD [Primary Care Provider] -
[2017-03-02] MEDS: Ondansetron 4 MG/2 ML VIAL IVP PRN (18:35)
[2017-03-03] MEDS: Insulin LISPRO 300 UNITS/3 ML VIAL SQ SCH ×7 (01:29→23:44)
[2017-03-03] MEDS: *HR* HYDROmorphone (PF) 1 MG/ML SYRINGE IVP PRN ×4 (02:11→18:45)
[2017-03-03] MEDS: *HR* Metoprolol 5 MG/5 ML VIAL IVP SCH ×2 (03:21→07:59)
[2017-03-03] MEDS: Albuterol 2.5 MG/3 ML NEBULIZER IH SCH ×4 (04:04→22:06)
[2017-03-03] MEDS: D5% in 0.45% NACL 1,000 ML IVC SCH (05:32)
[2017-03-03] MEDS: Pantoprazole 40 MG VIAL IVP SCH (07:59)
[2017-03-03] MEDS: NIFEdipine XL (24 HR) 30 MG TAB.ER.24 PO SCH (07:59)
[2017-03-03] MEDS: Levothyroxine Sodium 100 MCG VIAL IVP SCH (07:59)
--- NOTE | 2017-03-03 11:22 | General Surgery Progress Note ---
Date of Encounter: 03/03/17 Time of Encounter: 11:19 Subjective Patient reports: feels better, still having pain, pain is less Narrative: General Surgery - POD #4 patient feeling better; pain diminished. Patient has moved her bowels Afebrile, 98.3; pulse 82, respirations 16, blood pressure 113/70 Lungs: Clear, satisfactory inspiratory effort; no wheezes or rales detected Abdomen: Soft, minimal right sided abdominal pain. No obvious intra- abdominal masses. No rebound. Active bowel sounds. Incision clean and dry. Urine output approximately 1500 mL for the last 24 hours Impression: Postoperative day 4, status post extended right colectomy. Acceptable status; with return of bowel activity will be able to initiate diet Pathology still pending but pulmonary reports indicate this stricture was of benign etiology Objective Vital Signs - Last 8 Hours Temp Pulse Resp BP Pulse Ox 03/03/17 09:32 16 113/73 97 03/03/17 07:47 98.3 F 82 17 113/73 96 03/03/17 04:06 14 97 03/03/17 03:20 98.5 F 86 18 105/68 93 Intake and Output 03/02/17 03/03/17 03/03/17 23:59 07:59 15:59 Intake Total 1000 / 1000 856 / 856 0 / 0 Output Total 550 / 550 650 / 650 Balance 450 / 450 206 / 206 0 / 0 Intake: IV Fluids 1000 / 1000 856 / 856 D5% And 0.45% Nacl 1000 1000 / 1000 856 / 856 Ml Bag 1,000 ML @ 75 mls/ hr IVC .[id number] [facility] Rx#: [id number] Oral 0 / 0 Output: Urine 550 / 550 650 / 650 Other: Meal npo Percent of Meal Consumed 0% Stool Size Small Stool Consistency liquid Stool Color Brown Weight 84.459 kg Blood Glucose* 126 108 Patient Weight 03/03/17 23:59 Weight 84.459 kg - Labs 03/02/17 04:34 03/02/17 04:34 - VTE Documentation of Mechanical Device: Intermittent pneumatic compression device Consult Discharge Plan - Plan Referrals: Atul Ritchie Jr, MD [Primary Care Provider] -
[2017-03-03] MEDS ORDERED: *HR* OxyCODONE/APAP 5/325 TABLET PO PRN (11:30)
[2017-03-03] MEDS: traMADol 50 MG TABLET PO PRN (22:37)
[2017-03-04] MEDS: Albuterol 2.5 MG/3 ML NEBULIZER IH SCH ×4 (03:56→23:33)
[2017-03-04] MEDS: Insulin LISPRO 300 UNITS/3 ML VIAL SQ SCH ×5 (04:50→19:20)
[2017-03-04 06:39] LABS: Basophils % 0.4 %; Eosinophils # 0.3 K/mcL (0.0-0.6); Eosinophils % 4.6 %; Hematocrit 31.2 % (35.3-44.9); Hemoglobin 10.1 g/dL (11.5-15.4); Immature Granulocytes % 0.5 % (0-4); Lymphocytes # 1.7 K/mcL (0.6-4.6); Mean Corpuscular HGB Conc 32.4 g/dL (31.6-35.5); Mean Corpuscular Hemoglobin 29.8 pg (28.0-33.3); Mean Platelet Volume 10.9 fL (9.4-12.4); Monocytes # 0.8 K/mcL (0.0-1.3); Monocytes % 13.6 %; Platelet Count 196 K/mcL (140-400); Red Blood Count 3.39 M/mcL (3.82-4.97); Red Cell Distribution Width 12.9 % (11.5-14.5); Segmented Neutrophils % 51.9 %
[2017-03-04] MEDS: *HR* Metformin 500 MG TABLET PO SCH (07:57)
[2017-03-04] MEDS: NIFEdipine XL (24 HR) 30 MG TAB.ER.24 PO SCH (07:57)
[2017-03-04] MEDS: *HR* HYDROmorphone (PF) 1 MG/ML SYRINGE IVP PRN ×3 (11:00→21:01)
[2017-03-04] MEDS: Ondansetron 4 MG/2 ML VIAL IVP PRN ×2 (16:37→20:50)
--- NOTE | 2017-03-04 18:03 | General Surgery Progress Note ---
Date of Encounter: 03/04/17 Time of Encounter: 14:00 Subjective Narrative: General Surgery - POD #5 - this is a delayed dictation. Patient seen and examined at 1400 and again 17:45 Patient indicated that she was feeling well this a.m. but her affect was very flat. Patient was tolerating clear liquids Afebrile, pulse 6768, respirations 16-20, blood pressure 103/67. SPO2 on 2 L /m nasal cannula 95%. Lungs: clear, good inspiratory effort; no bibasilar rales or wheezes. No obvious abdominal pain on deep inspiration. Cardiac: Regular rate, no obvious murmurs - pulse range 67-74 Abdomen: Soft with minimal brett-incisional tenderness. No obvious peritoneal signs. Active bowel sounds. Patient is passing flatus. Midline incision with a small amount of serosanguineous drainage caudal 1/ 3. Likely acumulated subcutaneous fluid due to recent surgery. Urine output: 1650 mL in the last 24 hours Laboratories: White count 5.7, hemoglobin 10.1 with hematocrit 31.2; platelet count 196,000; H likely reflective of perioperative postop IV fluids (dilution) Pathology: Final report still pending Over the course of the day - diet was advanced to full liquids, the patient indicates she tolerated them well but had a brief episode of nausea. There was no emesis but patient indicates she was given an antiemetic with relief of her symptoms Patient has remained afebrile, hemodynamically stable. No change in abdominal exam. No additional drainage from the midline incision. If no further nausea or other GI distress, regular diet is planned for a.m. Objective Vital Signs - Last 8 Hours Temp Pulse Resp BP Pulse Ox 03/04/17 15:12 97.6 F 67 14 103/67 95 03/04/17 11:15 97.8 F 68 20 90/56 92 03/04/17 10:57 16 92 Intake and Output 03/04/17 03/04/17 03/04/17 07:59 15:59 23:59 Intake Total 600 / 600 240 / 240 Output Total 400 / 400 Balance 600 / 600 -160 / -160 Intake: Oral 600 / 600 240 / 240 Output: Urine 400 / 400 Other: Meal Breakfast Dinner Percent of Meal Consumed 100% Weight 82.962 kg Blood Glucose* 88 103 Patient Weight 03/04/17 23:59 Weight 82.962 kg - Labs 03/04/17 04:08 03/02/17 04:34 - VTE Documentation of Mechanical Device: Intermittent pneumatic compression device Consult Discharge Plan - Plan Referrals: Atul Ritchie Jr, MD [Primary Care Provider] -
[2017-03-04] MEDS: traMADol 50 MG TABLET PO PRN (20:00)
[2017-03-05] MEDS: Insulin LISPRO 300 UNITS/3 ML VIAL SQ SCH ×6 (00:54→22:48)
[2017-03-05] MEDS: Ondansetron 4 MG/2 ML VIAL IVP PRN (00:59)
[2017-03-05] MEDS: traMADol 50 MG TABLET PO PRN (02:31)
[2017-03-05] MEDS: Albuterol 2.5 MG/3 ML NEBULIZER IH SCH ×4 (05:01→22:32)
[2017-03-05] MEDS: *HR* Metformin 500 MG TABLET PO SCH (10:13)
[2017-03-05] MEDS: NIFEdipine XL (24 HR) 30 MG TAB.ER.24 PO SCH (10:14)
[2017-03-05] MEDS: *HR* HYDROmorphone (PF) 1 MG/ML SYRINGE IVP PRN (14:36)
--- NOTE | 2017-03-05 15:22 | General Surgery Progress Note ---
Date of Encounter: 03/05/17 Time of Encounter: 15:15 Subjective Patient reports: diarrhea Narrative: General Surgery - POD #6 - patient now with diarrhea - likely due to return of bowel function following extended right colectomy 6 days ago. The diarrhea may also be due to multiple of a large portion of the right colon (from cecum to just distal to the mid transverse colon). Less likely due to C dificile colitis but stool cultures pending. The diarrhea is concerning to the patient as she does not have "control" Afebrile, pulse 70, respirations 16, blood pressure 101/64. Patient still requires nasal cannula at 2 L/m to maintain oxygen saturations around 94% Lungs: Clear Abdomen: Soft; incisional tenderness diminishing. Midline incision clean and dry, no ejected fascial defects. No recurrent drainage. Active bowel sounds. Impression: Diarrhea, likely due to resumption of bowel function following extended right colectomy 02/27/2017 Advance diet to regular fiber additives await stool results Objective Vital Signs - Last 8 Hours Temp Pulse Resp BP Pulse Ox 03/05/17 14:53 97.9 F 70 16 101/64 94 03/05/17 11:32 98.4 F 73 16 101/67 96 03/05/17 11:05 16 96 03/05/17 07:57 98.1 F 73 16 104/67 96 Intake and Output 03/04/17 03/05/17 03/05/17 23:59 07:59 15:59 Intake Total 240 / 240 Output Total 400 / 400 300 / 300 Balance -160 / -160 -300 / -300 Intake: Oral 240 / 240 Output: Urine 400 / 400 Stool 300 / 300 Other: Meal Dinner Percent of Meal Consumed 100% Stool Size Moderate Moderate Stool Consistency liquid loose liquid Stool Color Brown Weight 85.366 kg Blood Glucose* 103 114 117 Patient Weight 03/05/17 23:59 Weight 85.366 kg - Labs 03/04/17 04:08 03/02/17 04:34 - VTE Documentation of Mechanical Device: Intermittent pneumatic compression device Consult Discharge Plan - Plan Referrals: Atul Ritchie Jr, MD [Primary Care Provider] -
[2017-03-05] MEDS: Psyllium 1 PACKET POWD.PACK PO SCH ×2 (16:14→20:21)
[2017-03-06] MEDS: traMADol 50 MG TABLET PO PRN ×2 (01:37→14:25)
[2017-03-06] MEDS: Albuterol 2.5 MG/3 ML NEBULIZER IH SCH ×3 (04:00→15:20)
[2017-03-06] MEDS: Insulin LISPRO 300 UNITS/3 ML VIAL SQ SCH ×3 (08:00→13:06)
[2017-03-06] MEDS: NIFEdipine XL (24 HR) 30 MG TAB.ER.24 PO SCH (08:03)
[2017-03-06] MEDS: *HR* Metformin 500 MG TABLET PO SCH (08:04)
[2017-03-06 08:07] VITALS: BP 100/58
[2017-03-06] MEDS: Psyllium 1 PACKET POWD.PACK PO SCH (08:14)
--- NOTE | 2017-03-06 10:48 | General Surgery Progress Note ---
Date of Encounter: 03/06/17 Time of Encounter: 10:29 Subjective Patient reports: no new complaints, diarrhea Narrative: General Surgery - POD #7 - Progress Note / Discharge summary Patient feeling better, diarrhea persists but has improved/decreased with fiber( psyllium). Afebrile, currently 98.4; pulse 74, respirations 16, blood pressure 100/58 Lungs: Clear; no abdominal pain with deep inspiration Cardiac: Regular rate, no appreciable murmurs Abdomen: Soft with minimal incisional tenderness. Midline incision appears clean and dry- no erythema, edema or obvious subcutaneous fluid. Prior sero- sanguinous drainage caudal pole of the incision does not appear to have recurred. Active bowel sounds. Pathology - fibrous stricture with no identified atypia, or neoplasm. No other diagnostic abnormalities detected in the resected colon. Impression - fibrous stricture mid transverse colon - resected post op diarrhea - likely due to the extended right colectomy. No obvious infectious etiology - C dificile negative resolution of pre op cramping upper abdominal pain post anemia - likely dilution related to brett operative IV fluids. Diabetes Mellitus - type 2 CAD with prior CO 2010 - stable hypertension hyperlipidemia Hospital course - 66-year-old patient referred after colonoscopy per Dr. Rob demonstrated a severe stricture mid transverse colon. The colonoscope was not able to traverse the stricture. Completion barium enema demonstrated no other significant findings in the remaining colon. The patient was experiencing cramping upper abdominal pain prompting referral for surgical resection. The resection was completed, 02/27/17. An extended right colectomy with stapled ileocolic anastomosis was completed without incident. The patient's post op recovery was fairly unremarkable. The patient experienced the expected incisional pain/tenderness. Minimal bilateral atelectasis was addressed with aggressive pulmonary toilet and inhalation therapy using albuterol. Bowel activity had returned sufficiently by postoperative day to allow initiation of clear liquid diet with advancement to a diabetic diet over the next several days. As bowel activity resumed, the patient experienced diarrhea with incontinence. Stool was checked for C dificile with none identified. The diarrhea was likely due to the resection of the colon to beyond the stricture in the mid transverse colon. It is expected to resolve with additional healing and recovery. Pathology identified the stricture to be of benign etiology. The patient had sufficiently recovered to be discharged home in good physical condition on postoperative day 7, 03/06/17. Discharge instructions: Patient may resume her usual medications Patient may shower, wash incision with soap and water Patient may resume her regular diabetic diet; fiber additives 2-3 times a day Activity as tolerated; lifting limited less than 20 pounds. Tylenol, ibuprofen, Motrin, Advil, Aleve, etc., as needed for pain Prescription for Percocet 5/325, #20, one every 6 hours as needed for pain not relieved by [id number] medications Imodium prescribed for diarrhea as needed Follow up my office, 03/08/17; patient to call my office in the a.m. to make this follow-up appointment Objective Vital Signs - Last 8 Hours Temp Pulse Resp BP Pulse Ox 03/06/17 08:05 98.4 F 74 16 100/58 996 03/06/17 03:33 98.6 F 77 15 100/65 96 Intake and Output 03/05/17 03/06/17 03/06/17 23:59 07:59 15:59 Intake Total 120 / 120 Output Total 500 / 500 200 / 200 Balance -500 / -500 -200 / -200 120 / 120 Intake: Oral 120 / 120 Output: Urine 200 / 200 Urine/Stool Mix 500 / 500 Other: Meal refused dinner Breakfast Percent of Meal Consumed 0% 45% Stool Consistency liquid Stool Color Brown Yellow Weight 85.417 kg Blood Glucose* 89 89 Patient Weight 03/06/17 23:59 Weight 85.417 kg - Labs 03/04/17 04:08 03/02/17 04:34 - VTE Documentation of Mechanical Device: Intermittent pneumatic compression device Consult Discharge Plan - Plan Referrals: Atul Ritchie Jr, MD [Primary Care Provider] -
--- NOTE | 2017-03-06 10:54 | Discharge Summary ---
Outpatient Proc Discharge Plan - Plan Additional Instructions: Diabetic diet Patient may shower, wash incision with soap and water Activity as tolerated; lifting limited to less than 20 pounds Patient may resume her usual home meds Tylenol, ibuprofen, Motrin, Advil, Aleve, etc. as needed for pain Prescription for Percocet 5/325, #20, one every 6 hours as needed for pain not relieved by [id number] medications Prescription for Imodium, to be used as directed as needed for diarrhea Follow-up my office, 03/08/17; patient to call my office in a.m. to make this appointment Prescriptions: Loperamide [Imodium] 2 mg PO Q4HR PRN #30 PRN Reason: Diarrhea OxyCODONE/APAP 5/325 [Percocet 5/325 MG] 1 each PO Q6HR PRN #20 tab PRN Reason: Pain Home Medications: Aspirin Enteric Coated [Aspirin EC] 81 mg PO DAILY 10/28/16 [History] Atorvastatin [Lipitor] 40 mg PO HS 10/28/16 [History] Carvedilol 12.5 mg PO BID 10/28/16 [History] Fluticasone Propionate Nasal [Flonase] 50 mcg NS DAILY 10/28/16 [History] Levothyroxine [Synthroid] 88 mcg PO 0630 10/28/16 [History] Losartan Potassium [Cozaar] 50 mg PO DAILY 10/28/16 [History] NIFEdipine [Nifedipine ER] 30 mg PO DAILY 10/28/16 [History] Omeprazole [PriLOSEC] 20 mg PO DAILY 10/28/16 [History] metFORMIN [Glucophage] 250 - 500 mg PO DAILY PRN 10/28/16 [History] Tramadol HCl [Ultram] 50 mg PO Q6H PRN 01/18/17 [History] Loperamide [Imodium] 2 mg PO Q4HR PRN #30 03/06/17 [Rx] OxyCODONE/APAP 5/325 [Percocet 5/325 MG] 1 each PO Q6HR PRN #20 tab 03/06/17 [Rx ] Psyllium [Metamucil Fiber Singles Packet] 3 packet PO TID 03/06/17 [Rx]
--- NOTE | 2017-03-06 14:28 | Event Note ---
Date of Encounter: 03/06/17 Time of Encounter: 14:10 Hospitalist consulted for prescription only by discharging physician due to patient still requiring oxygen at discharge. Patient and chronic stable state still requiring oxygen at 2 L via nasal cannula.
== END 2017-03-06 16:50 | disposition home or self-care (01) | DRG 331 ==
LOC: SAMDAY 09:20 → 3BNU 15:02
PROVIDERS: ADMIT Surgery; ATTEND Surgery